=== PATIENT | female | born 1950 | race Caucasian/White ===

== ENCOUNTER 2017-08-04 01:09 | Day surgery (SDC) | payer MEDICARE, OTHER ==
[~2017-08-04 01:09] MED LIST: ABAT250V IV; ALBU90OI INH; AMLO5 PO; ASPI325EC PO; ASPI81CH PO; ATOR20; AZIT250 PO; AZIT500 PO; CLOP75 PO; ETAN25I SC; HYDACE10B PO; IBUP800 PO; LOSA25 PO; METO25ER; METTREX2.5 PO; Methotrexa25 MG/1 ML; OMEPRAZOLE MAGN20 MG; PRED20 PO; PRED5; PRODEXEL PO; PSEU120ER PO; Valium5 MG PO; [UNRECOGNIZED DRUG - OTHER] IM
[2018-02-16] MEDS ORDERED: ABAT250V IV ×2 (14:26)
== END 2017-08-04 12:00 | disposition home or self-care (01) ==
LOC: ATC 01:09
DX: M05.79 Rheumatoid arthritis with rheumatoid factor of multiple sites without organ or systems involvement (principal); I10 Essential (primary) hypertension; Z79.52 Long term (current) use of systemic steroids; F17.210 Nicotine dependence, cigarettes, uncomplicated; I25.10 Atherosclerotic heart disease of native coronary artery without angina pectoris; R16.0 Hepatomegaly, not elsewhere classified; Z79.02 Long term (current) use of antithrombotics/antiplatelets
CPT/HCPCS: 96365; J0129

== ENCOUNTER 2017-09-01 00:56 | Day surgery (SDC) | payer MEDICARE, OTHER ==
[2018-02-16] MEDS ORDERED: ABAT250V IV ×2 (14:26)
== END 2017-09-01 14:33 | disposition home or self-care (01) ==
LOC: ATC 00:56
DX: M05.79 Rheumatoid arthritis with rheumatoid factor of multiple sites without organ or systems involvement (principal); Z88.5 Allergy status to narcotic agent
CPT/HCPCS: 96365; J0129

== ENCOUNTER 2017-09-29 00:24 | Day surgery (SDC) | payer MEDICARE, OTHER ==
[2018-02-16] MEDS ORDERED: ABAT250V IV ×2 (14:26)
== END 2017-09-29 15:17 | disposition home or self-care (01) ==
LOC: ATC 00:24
DX: M05.79 Rheumatoid arthritis with rheumatoid factor of multiple sites without organ or systems involvement (principal); I25.10 Atherosclerotic heart disease of native coronary artery without angina pectoris; I10 Essential (primary) hypertension
CPT/HCPCS: 96365; J0129

== ENCOUNTER 2017-10-27 01:50 | Day surgery (SDC) | payer MEDICARE, OTHER ==
[2018-02-16] MEDS ORDERED: ABAT250V IV ×2 (14:26)
== END 2017-10-27 15:10 | disposition home or self-care (01) ==
LOC: ATC 01:50
DX: M05.79 Rheumatoid arthritis with rheumatoid factor of multiple sites without organ or systems involvement (principal)
CPT/HCPCS: 96365; 96413; J0129

== ENCOUNTER 2017-11-25 00:28 | Day surgery (SDC) | payer MEDICARE, OTHER | END 2017-11-25 15:00 | disposition home or self-care (01) | LOC: ATC 00:28 | DX: M05.79 Rheumatoid arthritis with rheumatoid factor of multiple sites without organ or systems involvement (principal); M79.7 Fibromyalgia; I10 Essential (primary) hypertension; M54.5 Low back pain | CPT/HCPCS: 96365; J0129 ==

== ENCOUNTER 2017-12-23 00:36 | Day surgery (SDC) | payer MEDICARE, OTHER | END 2017-12-23 15:20 | disposition home or self-care (01) | LOC: ATC 00:36 | DX: M05.79 Rheumatoid arthritis with rheumatoid factor of multiple sites without organ or systems involvement (principal) | CPT/HCPCS: 96365; J0129 ==

== ENCOUNTER 2018-01-19 00:26 | Day surgery (SDC) | payer MEDICARE, OTHER | END 2018-01-19 15:19 | disposition home or self-care (01) | LOC: ATC 00:26 | DX: M05.79 Rheumatoid arthritis with rheumatoid factor of multiple sites without organ or systems involvement (principal); M79.7 Fibromyalgia; I25.10 Atherosclerotic heart disease of native coronary artery without angina pectoris; I25.2 Old myocardial infarction | CPT/HCPCS: 96365; J0129 ==

== ENCOUNTER 2018-04-13 08:30 | Day surgery (SDC) | payer MEDICARE, OTHER | END 2018-04-13 15:33 | disposition home or self-care (01) | LOC: ATC 08:30 | DX: M05.79 Rheumatoid arthritis with rheumatoid factor of multiple sites without organ or systems involvement (principal); M79.7 Fibromyalgia | CPT/HCPCS: 96365; J0129 ==

== ENCOUNTER 2018-08-12 00:22 | Day surgery (SDC) | payer MEDICARE, OTHER | END 2018-08-12 15:05 | disposition home or self-care (01) | LOC: ATC 00:22 | DX: M05.79 Rheumatoid arthritis with rheumatoid factor of multiple sites without organ or systems involvement (principal); M79.7 Fibromyalgia; Z72.0 Tobacco use; Z79.899 Other long term (current) drug therapy; Z88.5 Allergy status to narcotic agent | CPT/HCPCS: 96365; J0129 ==

== ENCOUNTER 2018-09-19 14:20 | Day surgery (SDC) | payer MEDICARE, OTHER | END 2018-09-19 15:32 | disposition home or self-care (01) | LOC: ATC 14:20 | DX: M05.79 Rheumatoid arthritis with rheumatoid factor of multiple sites without organ or systems involvement (principal); Z88.5 Allergy status to narcotic agent | CPT/HCPCS: 96365; J0129 ==

== ENCOUNTER → 2018-10-20 | Outpatient (CLI) | payer MEDICARE, OTHER ==
[2018-10-20 12:25] LABS: BASOPHILS ABSOLUTE AUTO 0.01 K/mm3 (0.00-0.23); BASOPHILS PERCENT AUTO 0 % (0-2); EOSINOPHILS PERCENT AUTO 0 % (0-6); Hematocrit 46.3 % (33.0-51.0); Hemoglobin 15.7 g/dL (11.5-16.0); IMMATURE GRAN ABSOLUTE AUTO 0.02 K/mm3 (0.00-0.10); IMMATURE GRAN PERCENT AUTO 0 % (0-1); LYMPHOCYTES ABSOLUTE AUTO 2.16 K/mm3 (0.84-5.20); LYMPHOCYTES PERCENT AUTO 29 % (21-46); MONOCYTES ABSOLUTE AUTO 0.69 K/mm3 (0.16-1.47); MONOCYTES PERCENT AUTO 9 % (4-13); Mean Corpuscular HGB 31.7 pg (26.0-34.0); Mean Corpuscular HGB Conc 33.9 g/dL (31.5-36.5); Mean Corpuscular Volume 93 fL (80-100); Mean Platelet Volume 11.4 fL (9.1-12.4); NEUTROPHILS ABSOLUTE AUTO 4.62 K/mm3 (1.96-9.15); NEUTROPHILS PERCENT AUTO 62 % (41-73); Platelet Count 247 K/mm3 (150-400); RDW Coefficient Variation 13.8 % (11.7-14.2); RDW Standard Deviation 47.8 fL (35.1-46.3); Red Blood Cell Count 4.96 M/mm3 (3.80-5.20)
[2018-10-20 12:33] LABS: Albumin, Blood 3.7 g/dL (3.4-5.0); Albumin/Globulin Ratio 1.2 (0.8-1.8); Bilirubin, Total 0.9 mg/dL (0.1-1.0); Bun/Creatinine Ratio 29.4 (12.0-20.0); Calcium, Blood 8.7 mg/dL (8.5-10.1); Creatinine, Blood 1.02 mg/dL (0.40-1.00); Globulin, Blood 3.1 g/dL (2.2-4.0); Potassium, Blood 3.6 mmol/L (3.5-5.5); Total Protein, Blood 6.8 g/dL (6.4-8.2)
== END | disposition home or self-care (01) ==
LOC: LAB EV 12:18 → LAB SHORT 12:18
PROVIDERS: General Practice
DX: J44.9 Chronic obstructive pulmonary disease, unspecified (principal)
CPT/HCPCS: 80053; 85025

== ENCOUNTER 2018-11-25 00:19 | Day surgery (SDC) | payer MEDICARE, OTHER | END 2018-11-25 15:17 | disposition home or self-care (01) | LOC: ATC 00:19 | DX: M05.79 Rheumatoid arthritis with rheumatoid factor of multiple sites without organ or systems involvement (principal); I10 Essential (primary) hypertension; M79.7 Fibromyalgia; Z88.5 Allergy status to narcotic agent | CPT/HCPCS: 96365; J0129 ==

== ENCOUNTER 2019-02-10 00:52 | Day surgery (SDC) | payer MEDICARE, OTHER | END 2019-02-10 15:54 | disposition home or self-care (01) | LOC: ATC 00:52 | DX: M06.9 Rheumatoid arthritis, unspecified (principal); M79.7 Fibromyalgia; M47.896 Other spondylosis, lumbar region; I10 Essential (primary) hypertension; I25.10 Atherosclerotic heart disease of native coronary artery without angina pectoris; I25.2 Old myocardial infarction; Z85.828 Personal history of other malignant neoplasm of skin; Z95.5 Presence of coronary angioplasty implant and graft; Z79.899 Other long term (current) drug therapy; Z79.82 Long term (current) use of aspirin; Z79.52 Long term (current) use of systemic steroids; Z79.891 Long term (current) use of opiate analgesic; Z88.5 Allergy status to narcotic agent | CPT/HCPCS: 96365; J0129 ==

== ENCOUNTER 2019-03-13 00:09 | Day surgery (SDC) | payer MEDICARE, OTHER | END 2019-03-13 14:46 | disposition home or self-care (01) | LOC: ATC 00:09 | DX: M05.79 Rheumatoid arthritis with rheumatoid factor of multiple sites without organ or systems involvement (principal); I10 Essential (primary) hypertension | CPT/HCPCS: 96365; J0129 ==

== ENCOUNTER 2019-04-12 00:13 | Day surgery (SDC) | payer MEDICARE, OTHER | END 2019-04-12 15:17 | disposition home or self-care (01) | LOC: ATC 00:13 | DX: M05.79 Rheumatoid arthritis with rheumatoid factor of multiple sites without organ or systems involvement (principal); M79.7 Fibromyalgia; I10 Essential (primary) hypertension; Z88.5 Allergy status to narcotic agent | CPT/HCPCS: 96365; J0129 ==

== ENCOUNTER 2019-05-10 00:33 | Day surgery (SDC) | payer MEDICARE, OTHER | END 2019-05-10 15:00 | disposition home or self-care (01) | LOC: ATC 00:33 | DX: M05.79 Rheumatoid arthritis with rheumatoid factor of multiple sites without organ or systems involvement (principal); I25.10 Atherosclerotic heart disease of native coronary artery without angina pectoris; I10 Essential (primary) hypertension; I25.2 Old myocardial infarction; F17.210 Nicotine dependence, cigarettes, uncomplicated; Z79.899 Other long term (current) drug therapy; Z95.5 Presence of coronary angioplasty implant and graft; Z79.82 Long term (current) use of aspirin | CPT/HCPCS: 96365; J0129 ==

== ENCOUNTER 2019-05-30 14:24 | Emergency (ER) | payer MEDICARE, OTHER ==
[~2019-05-30] VITALS: Ht 154.9 cm; Wt 46.3 kg
[2019-05-30 15:24] LABS: BASOPHILS ABSOLUTE AUTO 0.05 K/mm3 (0.00-0.23); BASOPHILS PERCENT AUTO 1 % (0-2); EOSINOPHILS ABSOLUTE AUTO 0.02 K/mm3 (0.00-0.68); EOSINOPHILS PERCENT AUTO 0 % (0-6); Hemoglobin 14.7 g/dL (11.5-16.0); IMMATURE GRAN ABSOLUTE AUTO 0.03 K/mm3 (0.00-0.10); IMMATURE GRAN PERCENT AUTO 0 % (0-1); LYMPHOCYTES ABSOLUTE AUTO 2.73 K/mm3 (0.84-5.20); LYMPHOCYTES PERCENT AUTO 28 % (21-46); MONOCYTES ABSOLUTE AUTO 0.72 K/mm3 (0.16-1.47); MONOCYTES PERCENT AUTO 7 % (4-13); Mean Corpuscular HGB Conc 32.7 g/dL (31.5-36.5); Mean Corpuscular Volume 98 fL (80-100); Mean Platelet Volume 10.8 fL (9.1-12.4); NEUTROPHILS ABSOLUTE AUTO 6.33 K/mm3 (1.96-9.15); NEUTROPHILS PERCENT AUTO 64 % (41-73); Platelet Count 234 K/mm3 (150-400); RDW Coefficient Variation 13.3 % (11.7-14.2); Red Blood Cell Count 4.59 M/mm3 (3.80-5.20); White Blood Cell Count 9.88 K/mm3 (4.00-11.30)
[2019-05-30 15:43] LABS: Alanine Aminotransfer (ALT/SGP 16 U/L (12-78); Albumin, Blood 3.7 g/dL (3.4-5.0); Albumin/Globulin Ratio 1.3 (0.8-1.8); Alk Phos 92 U/L (50-136); Anion Gap 0 mmol/L (6-16); Aspartate Aminotrans (AST/SGOT 14 U/L (12-37); Bilirubin, Total 0.5 mg/dL (0.1-1.0); Blood Urea Nitrogen 11 mg/dL (8-24); Bun/Creatinine Ratio 16.3 (12.0-20.0); CO2, Blood 31 mmol/L (21-32); Calcium, Blood 8.9 mg/dL (8.5-10.1); Chloride, Blood 109 mmol/L (98-108); Creatinine, Blood 0.68 mg/dL (0.40-1.00); Globulin, Blood 2.9 g/dL (2.2-4.0); Glomerular Filtration Rate >60 (60-); Glucose, Blood 99 mg/dL (70-99); Potassium, Blood 3.7 mmol/L (3.5-5.5); Sodium, Blood 140 mmol/L (136-145); Total Protein, Blood 6.6 g/dL (6.4-8.2); Troponin I <0.015 ng/mL (0.000-0.040)
== END 2019-05-30 17:28 | disposition home or self-care (01) ==
LOC: ER 14:24
PROVIDERS: Physician Assistant
DX: R07.89 Other chest pain (principal); I10 Essential (primary) hypertension; J44.9 Chronic obstructive pulmonary disease, unspecified; Z79.899 Other long term (current) drug therapy; Z79.82 Long term (current) use of aspirin; Z79.52 Long term (current) use of systemic steroids
CPT/HCPCS: 36415; 71046; 80053; 84484; 85025; 93005; 93010; 99285-25

== ENCOUNTER 2019-07-07 01:58 | Day surgery (SDC) | payer MEDICARE, OTHER ==
[~2019-07-07 01:58] MED LIST changes: -ATOR20; +ATOR20 PO; -METO25ER; +METO25ER PO; -PRED5; +PRED5 PO
[2019-07-07] MEDS ORDERED: Nitroglycerin1 EAC3 TD (14:07)
[2019-07-21] MEDS ORDERED: Aspir 8181 MG PO (07:44)
== END 2019-07-07 15:34 | disposition home or self-care (01) ==
LOC: ATC 01:58
DX: M06.9 Rheumatoid arthritis, unspecified (principal); M79.7 Fibromyalgia; I25.10 Atherosclerotic heart disease of native coronary artery without angina pectoris; E78.5 Hyperlipidemia, unspecified; I10 Essential (primary) hypertension; I25.2 Old myocardial infarction; K21.9 Gastro-esophageal reflux disease without esophagitis; F17.200 Nicotine dependence, unspecified, uncomplicated; Z88.2 Allergy status to sulfonamides; Z88.5 Allergy status to narcotic agent; Z88.8 Allergy status to other drugs, medicaments and biological substances; Z79.82 Long term (current) use of aspirin; Z79.52 Long term (current) use of systemic steroids; Z79.899 Other long term (current) drug therapy; Z95.5 Presence of coronary angioplasty implant and graft
CPT/HCPCS: 96365; J0129

== ENCOUNTER 2019-07-11 05:12 | Observation (INO) | payer MEDICARE, OTHER ==
[~2019-07-11] VITALS: Ht 154.9 cm; Wt 47.6 kg
[~2019-07-11 05:12] MED LIST changes: +Nitroglycerin1 EAC3 TD
[2019-07-11 05:46] LABS: BASOPHILS ABSOLUTE AUTO 0.06 K/mm3 (0.00-0.23); BASOPHILS PERCENT AUTO 0 % (0-2); EOSINOPHILS ABSOLUTE AUTO 0.08 K/mm3 (0.00-0.68); EOSINOPHILS PERCENT AUTO 1 % (0-6); Hematocrit 44.3 % (33.0-51.0); Hemoglobin 14.8 g/dL (11.5-16.0); IMMATURE GRAN ABSOLUTE AUTO 0.06 K/mm3 (0.00-0.10); IMMATURE GRAN PERCENT AUTO 0 % (0-1); LYMPHOCYTES ABSOLUTE AUTO 2.25 K/mm3 (0.84-5.20); LYMPHOCYTES PERCENT AUTO 15 % (21-46); MONOCYTES ABSOLUTE AUTO 1.31 K/mm3 (0.16-1.47); MONOCYTES PERCENT AUTO 9 % (4-13); Mean Corpuscular HGB 31.6 pg (26.0-34.0); Mean Corpuscular HGB Conc 33.4 g/dL (31.5-36.5); Mean Corpuscular Volume 95 fL (80-100); Mean Platelet Volume 10.5 fL (9.1-12.4); NEUTROPHILS ABSOLUTE AUTO 11.31 K/mm3 (1.96-9.15); NEUTROPHILS PERCENT AUTO 75 % (41-73); Platelet Count 198 K/mm3 (150-400); RDW Coefficient Variation 13.2 % (11.7-14.2); RDW Standard Deviation 45.4 fL (35.1-46.3); Red Blood Cell Count 4.69 M/mm3 (3.80-5.20); White Blood Cell Count 15.07 K/mm3 (4.00-11.30)
[2019-07-11 06:07] LABS: Alanine Aminotransfer (ALT/SGP 21 U/L (12-78); Albumin, Blood 3.6 g/dL (3.4-5.0); Albumin/Globulin Ratio 1.2 (0.8-1.8); Alk Phos 99 U/L (50-136); Anion Gap 6 mmol/L (6-16); Aspartate Aminotrans (AST/SGOT 17 U/L (12-37); Bilirubin, Total 0.8 mg/dL (0.1-1.0); Blood Urea Nitrogen 11 mg/dL (8-24); Bun/Creatinine Ratio 16.2 (12.0-20.0); CO2, Blood 26 mmol/L (21-32); Calcium, Blood 8.9 mg/dL (8.5-10.1); Chloride, Blood 110 mmol/L (98-108); Creatinine, Blood 0.68 mg/dL (0.40-1.00); Glomerular Filtration Rate >60 (60-); Glucose, Blood 107 mg/dL (70-99); Potassium, Blood 3.6 mmol/L (3.5-5.5); Sodium, Blood 142 mmol/L (136-145); Total Protein, Blood 6.6 g/dL (6.4-8.2); Troponin I <0.015 ng/mL (0.000-0.040)
[2019-07-11 15:42] LABS: Adenovirus Not Detected (NOT DETECT); Bordetella pertussis Not Detected (NOT DETECT); Chlamydophila pneumoniae Not Detected (NOT DETECT); Coronavirus 229E Not Detected (NOT DETECT); Coronavirus HKU1 Not Detected (NOT DETECT); Coronavirus NL63 Not Detected (NOT DETECT); Coronavirus OC43 Not Detected (NOT DETECT); Human Metapneumovirus Not Detected (NOT DETECT); Human Rhinovirus/Enterovirus Detected (NOT DETECT); Influenza A Not Detected (NOT DETECT); Influenza A/2009-H1 Not Detected (NOT DETECT); Influenza A/H1 Not Detected (NOT DETECT); Influenza A/H3 Not Detected (NOT DETECT); Influenza B Not Detected (NOT DETECT); Mycoplasma pneumoniae Not Detected (NOT DETECT); Parainfluenza Virus 1 Not Detected (NOT DETECT); Parainfluenza Virus 2 Not Detected (NOT DETECT); Parainfluenza Virus 3 Not Detected (NOT DETECT); Parainfluenza Virus 4 Not Detected (NOT DETECT); Respiratory Syncytial Virus Not Detected (NOT DETECT)
--- NOTE | 2019-07-11 18:45 | NUR ---
PT. SITTING IN BED AFTER EATING DINNER. HAS AMBULATED TWICE IN THE [place] SINCE ARRIVAL TO FLOOR. PT. IS A SMOKER BUT INFORMED HER SHE COULD NOT TAKE THE IV POLE OUT TO SMOKE. PT. PLEASANT AND COOPERATIVE.
--- NOTE | 2019-07-12 04:08 | NUR ---
DIANETICIST SUMMARY PT A/O X4. PLEASANT AND COOPERATIVE. INDEPENDENT IN ROOM AND WENT FOR A WALK IN THE HALLWAY EARLIER IN THE SHIFT BEFORE BED. SLEPT WELL THROUGHOUT THE NIGHT. DENIED ANY PAIN, NAUSEA AND DIZZINIESS. LUNG SOUNDS COARSE THROUGHOUT. DENIED SOB AND NO EXERSION NOTED. RT PROVIDED PT WITH ACAPELLA AT BEDSIDE TO CLEAR UP AIRWAY. PT STILL CANNOT PRODUCE ANY SPUTUM. AWAITING ON SPUTUM CULTURE. VSS, WILL CONTINUE TO MONITOR.
[2019-07-12 05:40] LABS: BASOPHILS ABSOLUTE AUTO 0.01 K/mm3 (0.00-0.23); BASOPHILS PERCENT AUTO 0 % (0-2); EOSINOPHILS ABSOLUTE AUTO 0.01 K/mm3 (0.00-0.68); EOSINOPHILS PERCENT AUTO 0 % (0-6); Hematocrit 45.2 % (33.0-51.0); Hemoglobin 14.8 g/dL (11.5-16.0); IMMATURE GRAN ABSOLUTE AUTO 0.08 K/mm3 (0.00-0.10); IMMATURE GRAN PERCENT AUTO 1 % (0-1); LYMPHOCYTES ABSOLUTE AUTO 0.88 K/mm3 (0.84-5.20); LYMPHOCYTES PERCENT AUTO 6 % (21-46); MONOCYTES ABSOLUTE AUTO 0.41 K/mm3 (0.16-1.47); MONOCYTES PERCENT AUTO 3 % (4-13); Mean Corpuscular HGB 31.2 pg (26.0-34.0); Mean Corpuscular HGB Conc 32.7 g/dL (31.5-36.5); Mean Corpuscular Volume 95 fL (80-100); Mean Platelet Volume 11.5 fL (9.1-12.4); NEUTROPHILS PERCENT AUTO 91 % (41-73); Platelet Count 207 K/mm3 (150-400); RDW Coefficient Variation 13.1 % (11.7-14.2); RDW Standard Deviation 46.2 fL (35.1-46.3); Red Blood Cell Count 4.74 M/mm3 (3.80-5.20); White Blood Cell Count 14.79 K/mm3 (4.00-11.30)
[2019-07-12 05:55] LABS: Magnesium, Blood 2.3 mg/dL (1.6-2.4)
--- NOTE | 2019-07-12 05:55 | NUR ---
PT TO IMAGING. PT WILL BE WC'D TO ICU FLOOR TO VISIT WHO WAS ADMITTED. PT STATED SHE WILL BE BACK ON MEDICAL FLOOR FOR SHIFT CHANGE.
[2019-07-12 05:56] LABS: Alanine Aminotransfer (ALT/SGP 19 U/L (12-78); Albumin, Blood 3.9 g/dL (3.4-5.0); Albumin/Globulin Ratio 1.1 (0.8-1.8); Alk Phos 96 U/L (50-136); Anion Gap 7 mmol/L (6-16); Aspartate Aminotrans (AST/SGOT 12 U/L (12-37); Bilirubin, Total 0.7 mg/dL (0.1-1.0); Blood Urea Nitrogen 12 mg/dL (8-24); Bun/Creatinine Ratio 24.7 (12.0-20.0); CO2, Blood 26 mmol/L (21-32); Chloride, Blood 110 mmol/L (98-108); Creatinine, Blood 0.49 mg/dL (0.40-1.00); Globulin, Blood 3.6 g/dL (2.2-4.0); Glomerular Filtration Rate >60 (60-); Glucose, Blood 158 mg/dL (70-99); Phosphorus, Blood 3.5 mg/dL (2.5-4.9); Potassium, Blood 3.7 mmol/L (3.5-5.5); Sodium, Blood 143 mmol/L (136-145); Total Protein, Blood 7.5 g/dL (6.4-8.2)
--- NOTE | 2019-07-12 06:09 | NUR ---
NICOTINE PATCH APPLIED ON RIGHT ARM THIS SHIFT.
[2019-07-12] MEDS ORDERED: AZIT250 PO (11:35)
[2019-07-12] MEDS ORDERED: Prednisone10 MG PO (11:35)
[2019-07-12] MEDS ORDERED: Florastor250 MG PO (11:36)
[2019-07-12] MEDS ORDERED: Nicoderm Cq1 EAC1 TOP (11:36)
[2019-07-12] MEDS ORDERED: GUAI600T33 PO (11:36)
[2019-07-12] MEDS ORDERED: ALBU90OI INH (11:37)
--- NOTE | 2019-07-12 12:05 | NUR ---
PATIENT DISCHARGED AT 12:04. PATIENT'S IV WAS DISCHARGED. HER DAUGHTER WALKED HER OUT.
[2019-07-21] MEDS ORDERED: Aspir 8181 MG PO (07:44)
== END 2019-07-12 12:03 | disposition home or self-care (01) ==
LOC: ER 05:12 → MEDS 05:13 → ER 05:13 → MEDS 05:14
PROVIDERS: Emergency Medicine; ADMIT Hospitalist
DX: J20.9 Acute bronchitis, unspecified (principal); J44.0 Chronic obstructive pulmonary disease with (acute) lower respiratory infection; J44.1 Chronic obstructive pulmonary disease with (acute) exacerbation; I10 Essential (primary) hypertension; I25.10 Atherosclerotic heart disease of native coronary artery without angina pectoris; F17.210 Nicotine dependence, cigarettes, uncomplicated; E78.5 Hyperlipidemia, unspecified; M06.9 Rheumatoid arthritis, unspecified; M79.7 Fibromyalgia; G25.0 Essential tremor; Z88.2 Allergy status to sulfonamides; Z88.5 Allergy status to narcotic agent; Z88.8 Allergy status to other drugs, medicaments and biological substances; Z95.5 Presence of coronary angioplasty implant and graft; Z79.52 Long term (current) use of systemic steroids; Z79.82 Long term (current) use of aspirin; Z79.899 Other long term (current) drug therapy
CPT/HCPCS: 0099U; 36415; 71046; 80053; 83735; 83880; 84100; 84145; 84484; 85025; 93005; 93010; 94640; 94644; 94760; 96374; 99285-25; G0378; J0456; J0696; J1650; J2930; J7050; J7120; J7512

== ENCOUNTER 2019-07-18 12:13 | Emergency (ER) | payer MEDICARE, OTHER ==
[~2019-07-18] VITALS: Ht 154.9 cm; Wt 43.1 kg
[~2019-07-18 12:13] MED LIST changes: +Florastor250 MG PO; +GUAI600T33 PO; +Nicoderm Cq1 EAC1 TOP; +Prednisone10 MG PO
[2019-07-18 12:43] LABS: BASOPHILS ABSOLUTE AUTO 0.02 K/mm3 (0.00-0.23); BASOPHILS PERCENT AUTO 0 % (0-2); EOSINOPHILS ABSOLUTE AUTO 0.01 K/mm3 (0.00-0.68); EOSINOPHILS PERCENT AUTO 0 % (0-6); Hematocrit 48.5 % (33.0-51.0); Hemoglobin 15.8 g/dL (11.5-16.0); IMMATURE GRAN ABSOLUTE AUTO 0.06 K/mm3 (0.00-0.10); IMMATURE GRAN PERCENT AUTO 1 % (0-1); LYMPHOCYTES ABSOLUTE AUTO 1.71 K/mm3 (0.84-5.20); LYMPHOCYTES PERCENT AUTO 13 % (21-46); MONOCYTES PERCENT AUTO 2 % (4-13); Mean Corpuscular HGB 30.9 pg (26.0-34.0); Mean Corpuscular HGB Conc 32.6 g/dL (31.5-36.5); Mean Corpuscular Volume 95 fL (80-100); Mean Platelet Volume 10.7 fL (9.1-12.4); NEUTROPHILS ABSOLUTE AUTO 10.72 K/mm3 (1.96-9.15); NEUTROPHILS PERCENT AUTO 84 % (41-73); Platelet Count 305 K/mm3 (150-400); RDW Coefficient Variation 12.5 % (11.7-14.2); RDW Standard Deviation 43.8 fL (35.1-46.3); Red Blood Cell Count 5.11 M/mm3 (3.80-5.20); White Blood Cell Count 12.82 K/mm3 (4.00-11.30)
[2019-07-18 13:07] LABS: Alanine Aminotransfer (ALT/SGP 32 U/L (12-78); Albumin, Blood 3.7 g/dL (3.4-5.0); Albumin/Globulin Ratio 1.2 (0.8-1.8); Alk Phos 94 U/L (50-136); Anion Gap 5 mmol/L (6-16); Aspartate Aminotrans (AST/SGOT 12 U/L (12-37); Bilirubin, Total 0.8 mg/dL (0.1-1.0); Blood Urea Nitrogen 14 mg/dL (8-24); Bun/Creatinine Ratio 21.2 (12.0-20.0); CO2, Blood 30 mmol/L (21-32); Calcium, Blood 8.7 mg/dL (8.5-10.1); Chloride, Blood 106 mmol/L (98-108); Creatinine, Blood 0.66 mg/dL (0.40-1.00); Glomerular Filtration Rate >60 (60-); Glucose, Blood 166 mg/dL (70-99); Potassium, Blood 3.4 mmol/L (3.5-5.5); Sodium, Blood 141 mmol/L (136-145); Total Protein, Blood 6.7 g/dL (6.4-8.2)
[2019-07-18] MEDS ORDERED: POTA10T PO (13:26)
[2019-07-18] MEDS ORDERED: TORSE20 PO (14:24)
[2019-07-18] MEDS ORDERED: Prednisone20 MG PO (16:31)
[2019-07-18] MEDS ORDERED: ALBU90OI INH (16:31)
[2019-07-21] MEDS ORDERED: Aspir 8181 MG PO (07:44)
== END 2019-07-18 17:14 | disposition home or self-care (01) ==
LOC: ER 12:13
PROVIDERS: Physician Assistant
DX: J44.1 Chronic obstructive pulmonary disease with (acute) exacerbation (principal); I10 Essential (primary) hypertension; M06.9 Rheumatoid arthritis, unspecified; I25.10 Atherosclerotic heart disease of native coronary artery without angina pectoris; F17.200 Nicotine dependence, unspecified, uncomplicated; Z88.2 Allergy status to sulfonamides; Z88.5 Allergy status to narcotic agent; Z88.8 Allergy status to other drugs, medicaments and biological substances; Z79.52 Long term (current) use of systemic steroids; Z79.899 Other long term (current) drug therapy; Z79.82 Long term (current) use of aspirin; Z79.2 Long term (current) use of antibiotics
CPT/HCPCS: 36415; 71046; 80053; 83880; 84484; 85025; 94640; 94644; 99284-25; J7512

== ENCOUNTER 2019-07-21 10:45 | Day surgery (SDC) | payer MEDICARE, OTHER ==
[~2019-07-21] VITALS: Ht 154.9 cm; Wt 43.0 kg
[~2019-07-21 10:45] MED LIST changes: +Aspir 8181 MG PO; +POTA10T PO; +Prednisone20 MG PO; +TORSE20 PO
--- NOTE | 2019-07-21 16:57 | NUR ---
DISCHARGE PT REMAINED A&OX3 AND DENIED ANY PAIN DURING RECOVERY. R RADIAL SITE TR BAND REMOVED-CLOTH DOT BANDAGE AND WHITE BOARD IN [id number] HEMATOMA NOTED. PT ABLE TO DRESS SELF WITH LITTLE ASSISTANCE FROM SPOUSE. IV DC'D WITH TIP IN TACT. DISCHARGE PAPERWORK GONE OVER WITH PT AND SPOUSE. PT AND SPOUSE VERBALLY STATED THE UNDERSTANDING OF THE DISCHARGE EDUCATION AND DENIED ANY QUESTIONS AT THIS TIME. PT WHEELED OUT BY THIS NURSE.
== END 2019-07-21 23:52 | disposition home or self-care (01) ==
LOC: MHTC 10:45
PROC: B205YZZ Plain Radiography of Left Heart using Other Contrast (ICD-10-PCS; principal; 2019-07-21)
PROC: B201YZZ Plain Radiography of Multiple Coronary Arteries using Other Contrast (ICD-10-PCS; principal; 2019-07-21)
PROC: 4A023N7 Measurement of Cardiac Sampling and Pressure, Left Heart, Percutaneous Approach (ICD-10-PCS; principal; 2019-07-21)
DX: I25.118 Atherosclerotic heart disease of native coronary artery with other forms of angina pectoris (principal); I10 Essential (primary) hypertension; I34.0 Nonrheumatic mitral (valve) insufficiency; E78.5 Hyperlipidemia, unspecified; J44.9 Chronic obstructive pulmonary disease, unspecified; F17.210 Nicotine dependence, cigarettes, uncomplicated; Z88.2 Allergy status to sulfonamides; Z88.5 Allergy status to narcotic agent; Z79.82 Long term (current) use of aspirin; Z79.899 Other long term (current) drug therapy; Z91.018 Allergy to other foods; Z95.5 Presence of coronary angioplasty implant and graft
CPT/HCPCS: 85347; 92978; 93458; 93571; 93572; 99152; 99153; C1753; C1769; C1887; C1894; J0153; J1644; J2250; J3010; J7030; Q9967

== ENCOUNTER 2019-08-04 00:48 | Day surgery (SDC) | payer MEDICARE, OTHER | END 2019-08-04 15:01 | disposition home or self-care (01) | LOC: ATC 00:48 | DX: M05.79 Rheumatoid arthritis with rheumatoid factor of multiple sites without organ or systems involvement (principal); I10 Essential (primary) hypertension; Z79.899 Other long term (current) drug therapy | CPT/HCPCS: 96365; J0129 ==

== ENCOUNTER 2020-02-12 00:13 | Day surgery (SDC) | payer MEDICARE, OTHER ==
[~2020-02-12 00:13] MED LIST changes: +ACTEMRA200 MG/10 IV; +Bisoprolol Fumar5 MG PO; +NITR.4SL SL; +RANO500T PO
[2020-03-12] MEDS ORDERED: Aspirin EC81 MG PO (11:14)
[2020-03-12] MEDS ORDERED: LOSA25 (11:15)
[2020-03-12] MEDS ORDERED: Bisoprolol Fumar5 MG (11:15)
[2020-03-12] MEDS ORDERED: AMLO10 PO (11:15)
[2020-03-12] MEDS ORDERED: TORSE20 PO (11:16)
[2020-03-12] MEDS ORDERED: RANEXA1000 M1 PO (11:16)
[2020-03-12] MEDS ORDERED: POTA10T PO (11:16)
[2020-03-12] MEDS ORDERED: XATMEP2.5 MG/1 M (11:17)
[2020-03-12] MEDS ORDERED: [UNRECOGNIZED DRUG - OTHER] (11:17)
[2020-03-12] MEDS ORDERED: Norco 10-325 T1 EACH PO (11:18)
[2020-03-12] MEDS ORDERED: Ventolin/Prove6.7 GM INH (11:18)
[2020-03-12] MEDS ORDERED: SUCR1 PO (11:19)
[2020-03-12] MEDS ORDERED: MIRALAX17 G3 PO (11:19)
[2020-03-12] MEDS ORDERED: NITR.4SL SL (11:19)
== END 2020-02-12 15:33 | disposition home or self-care (01) ==
LOC: ATC 00:13
DX: M06.9 Rheumatoid arthritis, unspecified (principal); I10 Essential (primary) hypertension; M79.7 Fibromyalgia; Z88.5 Allergy status to narcotic agent; Z79.899 Other long term (current) drug therapy; Z79.82 Long term (current) use of aspirin
CPT/HCPCS: 96365; J3262

== ENCOUNTER 2020-04-10 00:21 | Day surgery (SDC) | payer MEDICARE, OTHER ==
[~2020-04-10 00:21] MED LIST changes: +AMLO10 PO; +Aspirin EC81 MG PO; +Bisoprolol Fumar5 MG; +LOSA25; +MIRALAX17 G3 PO; +Norco 10-325 T1 EACH PO; +RANEXA1000 M1 PO; +SUCR1 PO; +Ventolin/Prove6.7 GM INH; +XATMEP2.5 MG/1 M; +[UNRECOGNIZED DRUG - OTHER]
== END 2020-04-10 15:38 | disposition home or self-care (01) ==
LOC: ATC 00:21
DX: M05.79 Rheumatoid arthritis with rheumatoid factor of multiple sites without organ or systems involvement (principal); I25.10 Atherosclerotic heart disease of native coronary artery without angina pectoris; I10 Essential (primary) hypertension; I25.2 Old myocardial infarction; J44.9 Chronic obstructive pulmonary disease, unspecified; F17.210 Nicotine dependence, cigarettes, uncomplicated; Z88.5 Allergy status to narcotic agent; Z79.82 Long term (current) use of aspirin; Z79.899 Other long term (current) drug therapy
CPT/HCPCS: 96365; J3262

== ENCOUNTER 2020-05-10 01:48 | Day surgery (SDC) | payer MEDICARE, OTHER | END 2020-05-10 15:26 | disposition home or self-care (01) | LOC: ATC 01:48 | DX: M05.79 Rheumatoid arthritis with rheumatoid factor of multiple sites without organ or systems involvement (principal); F17.210 Nicotine dependence, cigarettes, uncomplicated; I25.10 Atherosclerotic heart disease of native coronary artery without angina pectoris; Z95.5 Presence of coronary angioplasty implant and graft; Z79.899 Other long term (current) drug therapy | CPT/HCPCS: 96365; J3262 ==

== ENCOUNTER 2020-07-08 00:13 | Day surgery (SDC) | payer MEDICARE, OTHER ==
[2020-07-08] MEDS ORDERED: PLAVIX75 MG PO (14:20)
== END 2020-07-08 15:31 | disposition home or self-care (01) ==
LOC: ATC 00:13
DX: M05.79 Rheumatoid arthritis with rheumatoid factor of multiple sites without organ or systems involvement (principal); M79.7 Fibromyalgia; M54.5 Low back pain; I10 Essential (primary) hypertension; I25.10 Atherosclerotic heart disease of native coronary artery without angina pectoris; I25.2 Old myocardial infarction; Z95.5 Presence of coronary angioplasty implant and graft; Z88.2 Allergy status to sulfonamides; Z88.5 Allergy status to narcotic agent; Z88.8 Allergy status to other drugs, medicaments and biological substances; Z79.82 Long term (current) use of aspirin; Z79.899 Other long term (current) drug therapy
CPT/HCPCS: 96365; J3262

== ENCOUNTER 2020-09-04 00:10 | Day surgery (SDC) | payer MEDICARE, OTHER ==
[~2020-09-04 00:10] MED LIST changes: +Deltasone 10 mg10 MG PO; +FLUTICASONE-SA1 EAC9 INH; +PLAVIX75 MG PO
== END 2020-09-04 14:56 | disposition home or self-care (01) ==
LOC: ATC 00:10
DX: M05.79 Rheumatoid arthritis with rheumatoid factor of multiple sites without organ or systems involvement (principal); M79.7 Fibromyalgia
CPT/HCPCS: 96365; J3262

== ENCOUNTER 2020-10-02 00:04 | Day surgery (SDC) | payer MEDICARE, OTHER ==
[2020-10-02] MEDS ORDERED: Nitroglycerin1 EAC1 TOP (13:35)
== END 2020-10-02 14:56 | disposition home or self-care (01) ==
LOC: ATC 00:04
DX: M05.79 Rheumatoid arthritis with rheumatoid factor of multiple sites without organ or systems involvement (principal); M79.7 Fibromyalgia; I25.10 Atherosclerotic heart disease of native coronary artery without angina pectoris; I25.2 Old myocardial infarction; J44.9 Chronic obstructive pulmonary disease, unspecified; F17.210 Nicotine dependence, cigarettes, uncomplicated; I10 Essential (primary) hypertension; C44.311 Basal cell carcinoma of skin of nose; Z95.5 Presence of coronary angioplasty implant and graft; Z79.82 Long term (current) use of aspirin; Z79.52 Long term (current) use of systemic steroids
CPT/HCPCS: 96365; J3262

== ENCOUNTER 2020-11-04 00:03 | Day surgery (SDC) | payer MEDICARE, OTHER ==
[~2020-11-04 00:03] MED LIST changes: +Nitroglycerin1 EAC1 TOP
[2020-11-06 00:07] LABS: HBSAG SCREEN Negative (Negative); HCV ANTIBODY <0.1 (0.0-0.9)
[2020-11-06 19:10] LABS: QUANTIFERON MITOGEN VALUE >10.00 IU/mL (.); QUANTIFERON NIL VALUE 0.04 IU/mL (.); QUANTIFERON TB1 AG VALUE 0.05 IU/mL (.); QUANTIFERON TB2 AG VALUE 0.05 IU/mL (.); QUANTIFERON-TB GOLD PLUS Negative (Negative)
== END 2020-11-04 15:15 | disposition home or self-care (01) ==
LOC: ATC 00:03
PROVIDERS: Internal Medicine Rheumatology
DX: M05.79 Rheumatoid arthritis with rheumatoid factor of multiple sites without organ or systems involvement (principal); I25.10 Atherosclerotic heart disease of native coronary artery without angina pectoris; I25.2 Old myocardial infarction; F17.210 Nicotine dependence, cigarettes, uncomplicated; Z79.82 Long term (current) use of aspirin; Z95.5 Presence of coronary angioplasty implant and graft
CPT/HCPCS: 86480; 86803; 87340; 96365; J3262

== ENCOUNTER 2020-12-31 04:56 | Day surgery (SDC) | payer MEDICARE, OTHER | END 2020-12-31 15:04 | disposition home or self-care (01) | LOC: ATC 04:56 | DX: M05.79 Rheumatoid arthritis with rheumatoid factor of multiple sites without organ or systems involvement (principal); I10 Essential (primary) hypertension; I25.10 Atherosclerotic heart disease of native coronary artery without angina pectoris; Z95.5 Presence of coronary angioplasty implant and graft; Z88.5 Allergy status to narcotic agent | CPT/HCPCS: 96365; J3262 ==

== ENCOUNTER 2021-01-28 04:18 | Day surgery (SDC) | payer MEDICARE, OTHER ==
--- NOTE | 2021-01-28 15:25 | NUR ---
TOLERATED INFUSION WELL. NO C/O.
== END 2021-01-28 15:18 | disposition home or self-care (01) ==
LOC: ATC 04:18
DX: M05.79 Rheumatoid arthritis with rheumatoid factor of multiple sites without organ or systems involvement (principal); I25.2 Old myocardial infarction; I10 Essential (primary) hypertension; F17.210 Nicotine dependence, cigarettes, uncomplicated
CPT/HCPCS: 96365; J3262

== ENCOUNTER 2021-02-28 01:34 | Day surgery (SDC) | payer MEDICARE, OTHER | END 2021-02-28 12:18 | disposition home or self-care (01) | LOC: ATC 01:34 | DX: M05.79 Rheumatoid arthritis with rheumatoid factor of multiple sites without organ or systems involvement (principal); Z88.5 Allergy status to narcotic agent; F17.210 Nicotine dependence, cigarettes, uncomplicated; I10 Essential (primary) hypertension; I25.10 Atherosclerotic heart disease of native coronary artery without angina pectoris | CPT/HCPCS: 96365; J3262 ==

== ENCOUNTER 2021-05-02 14:16 | Emergency (ER) | payer MEDICARE, OTHER ==
[~2021-05-02] VITALS: Ht 154.9 cm; Wt 45.4 kg
[2021-05-02 15:47] LABS: Alanine Aminotransfer (ALT/SGP 16 U/L (12-78); Albumin, Blood 3.4 g/dL (3.4-5.0); Alk Phos 96 U/L (50-136); Anion Gap 3 mmol/L (6-16); Aspartate Aminotrans (AST/SGOT 16 U/L (12-37); Bilirubin, Total 0.5 mg/dL (0.1-1.0); Blood Urea Nitrogen 13 mg/dL (8-24); Bun/Creatinine Ratio 15.8 (12.0-20.0); CO2, Blood 32 mmol/L (21-32); Calcium, Blood 8.6 mg/dL (8.5-10.1); Chloride, Blood 104 mmol/L (98-108); Creatinine, Blood 0.82 mg/dL (0.40-1.00); Globulin, Blood 3.5 g/dL (2.2-4.0); Glomerular Filtration Rate >60 (60-); Glucose, Blood 170 mg/dL (70-99); Potassium, Blood 3.5 mmol/L (3.5-5.5); Sodium, Blood 139 mmol/L (136-145); Total Protein, Blood 6.9 g/dL (6.4-8.2); Troponin I <0.015 ng/mL (0.000-0.040)
[2021-05-02 16:56] LABS: BASOPHILS ABSOLUTE AUTO 0.05 K/mm3 (0.00-0.23); BASOPHILS PERCENT AUTO 1 % (0-2); EOSINOPHILS ABSOLUTE AUTO 0.08 K/mm3 (0.00-0.68); EOSINOPHILS PERCENT AUTO 1 % (0-6); Hematocrit 44.8 % (33.0-51.0); Hemoglobin 14.9 g/dL (11.5-16.0); IMMATURE GRAN ABSOLUTE AUTO 0.05 K/mm3 (0.00-0.10); IMMATURE GRAN PERCENT AUTO 1 % (0-1); LYMPHOCYTES ABSOLUTE AUTO 2.38 K/mm3 (0.84-5.20); LYMPHOCYTES PERCENT AUTO 28 % (21-46); MONOCYTES ABSOLUTE AUTO 0.62 K/mm3 (0.16-1.47); MONOCYTES PERCENT AUTO 7 % (4-13); Mean Corpuscular HGB 32.7 pg (26.0-34.0); Mean Corpuscular HGB Conc 33.3 g/dL (31.5-36.5); Mean Corpuscular Volume 98 fL (80-100); Mean Platelet Volume 10.6 fL (9.1-12.4); NEUTROPHILS ABSOLUTE AUTO 5.25 K/mm3 (1.96-9.15); NEUTROPHILS PERCENT AUTO 62 % (41-73); Platelet Count 249 K/mm3 (150-400); RDW Coefficient Variation 13.7 % (11.7-14.2); RDW Standard Deviation 49.4 fL (35.1-46.3); Red Blood Cell Count 4.56 M/mm3 (3.80-5.20); White Blood Cell Count 8.43 K/mm3 (4.00-11.30)
== END 2021-05-02 16:56 | disposition home or self-care (01) ==
LOC: ER 14:16
PROVIDERS: Physician Assistant
DX: R07.2 Precordial pain (principal); Z53.21 Procedure and treatment not carried out due to patient leaving prior to being seen by health care provider; Z79.899 Other long term (current) drug therapy; Z79.02 Long term (current) use of antithrombotics/antiplatelets; Z79.82 Long term (current) use of aspirin
CPT/HCPCS: 36415; 71046; 80053; 83690; 83880; 84484; 85025; 93005; 93010; 99285-25

== ENCOUNTER → 2021-07-04 | Outpatient (CLI) | payer MEDICARE, OTHER ==
[2021-07-04 12:55] LABS: BASOPHILS ABSOLUTE AUTO 0.04 K/mm3 (0.00-0.23); BASOPHILS PERCENT AUTO 1 % (0-2); EOSINOPHILS ABSOLUTE AUTO 0.03 K/mm3 (0.00-0.68); EOSINOPHILS PERCENT AUTO 0 % (0-6); Hematocrit 45.7 % (33.0-51.0); Hemoglobin 15.3 g/dL (11.5-16.0); IMMATURE GRAN ABSOLUTE AUTO 0.04 K/mm3 (0.00-0.10); IMMATURE GRAN PERCENT AUTO 1 % (0-1); LYMPHOCYTES ABSOLUTE AUTO 1.59 K/mm3 (0.84-5.20); LYMPHOCYTES PERCENT AUTO 18 % (21-46); MONOCYTES ABSOLUTE AUTO 0.48 K/mm3 (0.16-1.47); MONOCYTES PERCENT AUTO 6 % (4-13); Mean Corpuscular HGB 32.1 pg (26.0-34.0); Mean Corpuscular HGB Conc 33.5 g/dL (31.5-36.5); Mean Corpuscular Volume 96 fL (80-100); Mean Platelet Volume 10.8 fL (9.1-12.4); NEUTROPHILS ABSOLUTE AUTO 6.49 K/mm3 (1.96-9.15); NEUTROPHILS PERCENT AUTO 75 % (41-73); Platelet Count 305 K/mm3 (150-400); RDW Coefficient Variation 12.6 % (11.7-14.2); RDW Standard Deviation 44.9 fL (35.1-46.3); Red Blood Cell Count 4.76 M/mm3 (3.80-5.20); White Blood Cell Count 8.67 K/mm3 (4.00-11.30)
[2021-07-04 13:04] LABS: Albumin, Blood 3.8 g/dL (3.4-5.0); Albumin/Globulin Ratio 1.2 (0.8-1.8); Bilirubin, Total 0.7 mg/dL (0.1-1.0); Bun/Creatinine Ratio 18.9 (12.0-20.0); Calcium, Blood 9.4 mg/dL (8.5-10.1); Creatinine, Blood 0.95 mg/dL (0.40-1.00); Globulin, Blood 3.2 g/dL (2.2-4.0); Potassium, Blood 3.9 mmol/L (3.5-5.5)
== END | disposition home or self-care (01) ==
LOC: LAB 12:46 → LAB SHORT 12:46
PROVIDERS: General Practice
DX: J44.9 Chronic obstructive pulmonary disease, unspecified (principal)
CPT/HCPCS: 80053; 85025; 85379

== ENCOUNTER 2021-07-21 10:11 | Day surgery (SDC) | payer MEDICARE, OTHER ==
[~2021-07-21] VITALS: Wt 47.5 kg
[2021-07-21] MEDS ORDERED: ATORVASTATIN CA20 MG PO (10:38)
== END 2021-07-21 12:10 | disposition home or self-care (01) ==
LOC: ATC 10:11
DX: M05.79 Rheumatoid arthritis with rheumatoid factor of multiple sites without organ or systems involvement (principal); M79.7 Fibromyalgia; I25.10 Atherosclerotic heart disease of native coronary artery without angina pectoris; Z95.5 Presence of coronary angioplasty implant and graft; J44.9 Chronic obstructive pulmonary disease, unspecified; F17.210 Nicotine dependence, cigarettes, uncomplicated; I10 Essential (primary) hypertension
CPT/HCPCS: J3262

== ENCOUNTER 2021-08-12 09:29 | Observation (INO) | payer MEDICARE, OTHER ==
[~2021-08-12] VITALS: Ht 154.9 cm; Wt 43.5 kg
[~2021-08-12 09:29] MED LIST changes: +ATORVASTATIN CA20 MG PO
[2021-08-12 10:19] LABS: BASOPHILS ABSOLUTE AUTO 0.02 K/mm3 (0.00-0.23); BASOPHILS PERCENT AUTO 0 % (0-2); EOSINOPHILS ABSOLUTE AUTO 0.01 K/mm3 (0.00-0.68); EOSINOPHILS PERCENT AUTO 0 % (0-6); Hematocrit 53.3 % (33.0-51.0); IMMATURE GRAN PERCENT AUTO 1 % (0-1); LYMPHOCYTES PERCENT AUTO 16 % (21-46); MONOCYTES ABSOLUTE AUTO 0.95 K/mm3 (0.16-1.47); MONOCYTES PERCENT AUTO 7 % (4-13); Mean Corpuscular HGB 31.5 pg (26.0-34.0); Mean Corpuscular HGB Conc 33.8 g/dL (31.5-36.5); Mean Corpuscular Volume 93 fL (80-100); Mean Platelet Volume 10.5 fL (9.1-12.4); NEUTROPHILS ABSOLUTE AUTO 10.77 K/mm3 (1.96-9.15); NEUTROPHILS PERCENT AUTO 76 % (41-73); Platelet Count 281 K/mm3 (150-400); RDW Coefficient Variation 13.2 % (11.7-14.2); RDW Standard Deviation 45.9 fL (35.1-46.3); Red Blood Cell Count 5.71 M/mm3 (3.80-5.20); White Blood Cell Count 14.15 K/mm3 (4.00-11.30)
[2021-08-12 10:49] LABS: Anion Gap 9 mmol/L (6-16); Blood Urea Nitrogen 25 mg/dL (8-24); Bun/Creatinine Ratio 22.3 (12.0-20.0); CO2, Blood 30 mmol/L (21-32); Calcium, Blood 9.5 mg/dL (8.5-10.1); Chloride, Blood 103 mmol/L (98-108); Creatinine, Blood 1.12 mg/dL (0.40-1.00); Glomerular Filtration Rate 48 (60-); Glucose, Blood 139 mg/dL (70-99); Magnesium, Blood 2.4 mg/dL (1.6-2.4); Potassium, Blood 3.4 mmol/L (3.5-5.5); Sodium, Blood 142 mmol/L (136-145); Troponin I <0.015 ng/mL (0.000-0.040)
[2021-08-12 10:57] LABS: Influenza A, PCR NEGATIVE (NEGATIVE); Influenza B, PCR NEGATIVE (NEGATIVE); Resp Syncytial Virus, PCR NEGATIVE (NEGATIVE); SARS-Cov-2 (COVID-19) PCR, MMC NEGATIVE (NEGATIVE)
[2021-08-12 11:26] LABS: Bicarbonate Venous 30.5 mmol/L (24.0-30.0); PCO2 Venous 51.2 mmHg (38-42); PO2 Venous 52.3 mmHg (38-42); pH Blood Venous 7.42 (7.34-7.37)
--- NOTE | 2021-08-12 17:45 | NUR ---
SHIFT SUMMARY PATIENT IS ALERT AND ORIENTED X4. PATIENT IS INDEPENDENT IN ROOM. PATIENT WAS ADMITTED FOR COPD EXASPERATION. PATIENT IS SATTING 95 PERCENT ON ROOM AIR. PATIENT WAS ADMITTED FROM ED AT APROX 1600. DAUGHTER VISITED AFTER ADMISSION. VITAL SIGNS REVIEWED. NO ACUTE EVENTS THIS SHIFT. WILL MONITOR UNTIL SHIFT CHANGE.
--- NOTE | 2021-08-13 04:27 | NUR ---
PATIENT WAS ALERT AND ORIENTED X4, STABLE VITAL SIGNS, NO ACUTE CHANGES, PATIENT DENIED HAVING ANY PAIN. PATIENT SLEPT MOST OF THE NIGHT. CALL LIGHT WITH IN REACH AND BED DOWN TO THE LOWEST POSITION.WILL CONTINUE TO MONITOR UNTIL HAND OFF.
[2021-08-13] MEDS ORDERED: IPRAT-ALBUT 0.5-3 ML INH (15:19)
[2021-08-13] MEDS ORDERED: LEVOFLOXACIN500 M5 PO (15:20)
[2021-08-13] MEDS ORDERED: Prednisone10 MG PO (15:24)
[2021-08-13] MEDS ORDERED: Q-Tussin100 MG/5 M PO (15:28)
--- NOTE | 2021-08-13 16:35 | NUR ---
RECEIVED PATIENT IN BED, AAOX4, ABLE TO MAKE NEEDS KNOWN. PT COMPLIANT TO MEDIACTION REGIMEN. NO COMPLAINTS VOICED, DENIED PAIN OR DISCOMFORT. PATIENT AMBULATES WITH STEADY GAIT, ASSISTED WITH ADL'S NEEDED. PT WAS DISCHARGED HOME TODAY. PT ON RA, NO DISTRESS NOTED, TOLERATED BREATHING TREATMENT.
== END 2021-08-13 15:41 | disposition home or self-care (01) ==
LOC: ER 09:29 → ERHOLD 09:30 → MEDS 09:30 → ERHOLD 12:15 → ER 12:15 → MEDS 12:15 → ERHOLD 16:12 → MEDS 16:12
PROVIDERS: Student in an Organized Health Care Education/Training Program; ADMIT Internal Medicine
DX: J44.1 Chronic obstructive pulmonary disease with (acute) exacerbation (principal); J44.0 Chronic obstructive pulmonary disease with (acute) lower respiratory infection; J20.9 Acute bronchitis, unspecified; I10 Essential (primary) hypertension; I25.10 Atherosclerotic heart disease of native coronary artery without angina pectoris; E78.5 Hyperlipidemia, unspecified; M79.7 Fibromyalgia; M06.9 Rheumatoid arthritis, unspecified; F17.210 Nicotine dependence, cigarettes, uncomplicated; Z66 Do not resuscitate; Z88.2 Allergy status to sulfonamides; Z88.5 Allergy status to narcotic agent; Z88.8 Allergy status to other drugs, medicaments and biological substances; Z20.822 Contact with and (suspected) exposure to COVID-19
CPT/HCPCS: 0241U; 71045; 80048; 82803; 83735; 84145; 84484; 85025; 93005; 93010; 94640; 94644; 94760; 96365; 96372; 96375; 96376; 99285-25; A9270; G0378; J1650; J2920; J3475; J7030; J7512

== ENCOUNTER 2021-09-03 03:01 | Day surgery (SDC) | payer MEDICARE, OTHER ==
[~2021-09-03] VITALS: Wt 45.4 kg
[~2021-09-03 03:01] MED LIST changes: +IPRAT-ALBUT 0.5-3 ML INH; +LEVOFLOXACIN500 M5 PO; +Q-Tussin100 MG/5 M PO
== END 2021-09-03 14:55 | disposition home or self-care (01) ==
LOC: ATC 03:01
DX: M05.79 Rheumatoid arthritis with rheumatoid factor of multiple sites without organ or systems involvement (principal); M79.7 Fibromyalgia; I25.10 Atherosclerotic heart disease of native coronary artery without angina pectoris; I25.2 Old myocardial infarction; I10 Essential (primary) hypertension; I73.9 Peripheral vascular disease, unspecified; Z95.5 Presence of coronary angioplasty implant and graft; Z79.82 Long term (current) use of aspirin; Z79.52 Long term (current) use of systemic steroids
CPT/HCPCS: J3262

== ENCOUNTER 2021-10-01 01:37 | Day surgery (SDC) | payer MEDICARE, OTHER | END 2021-10-01 15:22 | disposition home or self-care (01) | LOC: ATC 01:37 | DX: M06.9 Rheumatoid arthritis, unspecified (principal); M79.7 Fibromyalgia; I10 Essential (primary) hypertension; I25.10 Atherosclerotic heart disease of native coronary artery without angina pectoris; I25.2 Old myocardial infarction; I73.9 Peripheral vascular disease, unspecified; Z95.5 Presence of coronary angioplasty implant and graft | CPT/HCPCS: 96365; J3262 ==

== ENCOUNTER 2021-10-29 00:27 | Day surgery (SDC) | payer MEDICARE, OTHER ==
[~2021-10-29] VITALS: Wt 45.7 kg
[~2021-10-29 00:27] MED LIST changes: -LOSA25
[2021-10-29 15:18] LABS: BASOPHILS ABSOLUTE AUTO 0.07 K/mm3 (0.00-0.23); BASOPHILS PERCENT AUTO 1 % (0-2); EOSINOPHILS ABSOLUTE AUTO 0.06 K/mm3 (0.00-0.68); EOSINOPHILS PERCENT AUTO 1 % (0-6); Hemoglobin 15.2 g/dL (11.5-16.0); IMMATURE GRAN ABSOLUTE AUTO 0.03 K/mm3 (0.00-0.10); IMMATURE GRAN PERCENT AUTO 0 % (0-1); LYMPHOCYTES ABSOLUTE AUTO 1.96 K/mm3 (0.84-5.20); LYMPHOCYTES PERCENT AUTO 24 % (21-46); MONOCYTES ABSOLUTE AUTO 0.65 K/mm3 (0.16-1.47); MONOCYTES PERCENT AUTO 8 % (4-13); Mean Corpuscular Volume 100 fL (80-100); Mean Platelet Volume 11.4 fL (9.1-12.4); NEUTROPHILS ABSOLUTE AUTO 5.37 K/mm3 (1.96-9.15); NEUTROPHILS PERCENT AUTO 66 % (41-73); Platelet Count 225 K/mm3 (150-400); RDW Standard Deviation 48.3 fL (35.1-46.3); White Blood Cell Count 8.14 K/mm3 (4.00-11.30)
[2021-10-29 15:38] LABS: Alanine Aminotransfer (ALT/SGP 19 U/L (12-78); Albumin, Blood 3.8 g/dL (3.4-5.0); Albumin/Globulin Ratio 1.3 (0.8-1.8); Alk Phos 82 U/L (50-136); Anion Gap 7 mmol/L (6-16); Aspartate Aminotrans (AST/SGOT 18 U/L (12-37); Bilirubin, Total 0.8 mg/dL (0.1-1.0); Blood Urea Nitrogen 13 mg/dL (8-24); Bun/Creatinine Ratio 17.9 (12.0-20.0); C-REACTIVE PROTEIN, EXT RANGE <0.290 mg/dL (0.000-0.300); CO2, Blood 32 mmol/L (21-32); Calcium, Blood 9.1 mg/dL (8.5-10.1); Chloride, Blood 102 mmol/L (98-108); Cholesterol 201 mg/dL (50-200); Creatinine, Blood 0.73 mg/dL (0.40-1.00); Globulin, Blood 2.9 g/dL (2.2-4.0); Glomerular Filtration Rate >60 (60-); Glucose, Blood 139 mg/dL (70-99); Sodium, Blood 141 mmol/L (136-145); Total Protein, Blood 6.7 g/dL (6.4-8.2); Triglycerides 157 mg/dL (30-160)
== END 2021-10-29 15:18 | disposition home or self-care (01) ==
LOC: ATC 00:27
PROVIDERS: Internal Medicine Rheumatology
DX: M05.79 Rheumatoid arthritis with rheumatoid factor of multiple sites without organ or systems involvement (principal); M79.7 Fibromyalgia; I25.10 Atherosclerotic heart disease of native coronary artery without angina pectoris; J44.9 Chronic obstructive pulmonary disease, unspecified; I25.2 Old myocardial infarction; F17.210 Nicotine dependence, cigarettes, uncomplicated; Z95.5 Presence of coronary angioplasty implant and graft
CPT/HCPCS: 80053; 82465; 84478; 85025; 85651; 86140; J3262

== ENCOUNTER 2021-11-26 00:55 | Day surgery (SDC) | payer MEDICARE, OTHER ==
[2021-11-26 14:39] LABS: BASOPHILS ABSOLUTE AUTO 0.06 K/mm3 (0.00-0.23); BASOPHILS PERCENT AUTO 1 % (0-2); EOSINOPHILS ABSOLUTE AUTO 0.05 K/mm3 (0.00-0.68); EOSINOPHILS PERCENT AUTO 1 % (0-6); Hematocrit 46.6 % (33.0-51.0); Hemoglobin 15.6 g/dL (11.5-16.0); IMMATURE GRAN ABSOLUTE AUTO 0.02 K/mm3 (0.00-0.10); IMMATURE GRAN PERCENT AUTO 0 % (0-1); LYMPHOCYTES ABSOLUTE AUTO 2.13 K/mm3 (0.84-5.20); LYMPHOCYTES PERCENT AUTO 28 % (21-46); MONOCYTES ABSOLUTE AUTO 0.77 K/mm3 (0.16-1.47); MONOCYTES PERCENT AUTO 10 % (4-13); Mean Corpuscular HGB Conc 33.5 g/dL (31.5-36.5); Mean Corpuscular Volume 99 fL (80-100); Mean Platelet Volume 11.1 fL (9.1-12.4); NEUTROPHILS ABSOLUTE AUTO 4.69 K/mm3 (1.96-9.15); NEUTROPHILS PERCENT AUTO 61 % (41-73); Platelet Count 218 K/mm3 (150-400); RDW Coefficient Variation 12.1 % (11.7-14.2); RDW Standard Deviation 44.3 fL (35.1-46.3); Red Blood Cell Count 4.73 M/mm3 (3.80-5.20); White Blood Cell Count 7.72 K/mm3 (4.00-11.30)
[2021-11-26 14:44] LABS: Alanine Aminotransfer (ALT/SGP 19 U/L (12-78); Albumin, Blood 3.9 g/dL (3.4-5.0); Albumin/Globulin Ratio 1.4 (0.8-1.8); Alk Phos 84 U/L (50-136); Anion Gap 7 mmol/L (6-16); Aspartate Aminotrans (AST/SGOT 13 U/L (12-37); Bilirubin, Total 0.5 mg/dL (0.1-1.0); Blood Urea Nitrogen 12 mg/dL (8-24); Bun/Creatinine Ratio 16.9 (12.0-20.0); C-REACTIVE PROTEIN, EXT RANGE <0.290 mg/dL (0.000-0.300); CO2, Blood 31 mmol/L (21-32); Calcium, Blood 8.8 mg/dL (8.5-10.1); Chloride, Blood 104 mmol/L (98-108); Creatinine, Blood 0.71 mg/dL (0.40-1.00); Globulin, Blood 2.8 g/dL (2.2-4.0); Glomerular Filtration Rate >60 (60-); Glucose, Blood 122 mg/dL (70-99); Potassium, Blood 3.8 mmol/L (3.5-5.5); Sodium, Blood 142 mmol/L (136-145); Total Protein, Blood 6.7 g/dL (6.4-8.2)
== END 2021-11-26 15:29 | disposition home or self-care (01) ==
LOC: ATC 00:55
PROVIDERS: Internal Medicine Rheumatology
DX: M05.79 Rheumatoid arthritis with rheumatoid factor of multiple sites without organ or systems involvement (principal); I10 Essential (primary) hypertension; I25.10 Atherosclerotic heart disease of native coronary artery without angina pectoris; Z88.5 Allergy status to narcotic agent
CPT/HCPCS: 80053; 85025; 85651; 86140; J3262

== ENCOUNTER 2022-01-28 01:19 | Day surgery (SDC) | payer MEDICARE, OTHER ==
[~2022-01-28] VITALS: Wt 45.0 kg
== END 2022-01-28 15:29 | disposition home or self-care (01) ==
LOC: ATC 01:19
DX: M05.79 Rheumatoid arthritis with rheumatoid factor of multiple sites without organ or systems involvement (principal); M79.7 Fibromyalgia; Z95.5 Presence of coronary angioplasty implant and graft; I25.2 Old myocardial infarction; I10 Essential (primary) hypertension; I25.10 Atherosclerotic heart disease of native coronary artery without angina pectoris; I73.9 Peripheral vascular disease, unspecified
CPT/HCPCS: 96365; J3262

== ENCOUNTER 2022-03-02 00:43 | Day surgery (SDC) | payer MEDICARE, OTHER ==
[2022-03-02 14:33] LABS: BASOPHILS ABSOLUTE AUTO 0.05 K/mm3 (0.00-0.23); BASOPHILS PERCENT AUTO 1 % (0-2); EOSINOPHILS ABSOLUTE AUTO 0.04 K/mm3 (0.00-0.68); EOSINOPHILS PERCENT AUTO 1 % (0-6); Hemoglobin 14.5 g/dL (11.5-16.0); IMMATURE GRAN ABSOLUTE AUTO 0.02 K/mm3 (0.00-0.10); IMMATURE GRAN PERCENT AUTO 0 % (0-1); LYMPHOCYTES ABSOLUTE AUTO 2.23 K/mm3 (0.84-5.20); LYMPHOCYTES PERCENT AUTO 26 % (21-46); MONOCYTES ABSOLUTE AUTO 0.75 K/mm3 (0.16-1.47); MONOCYTES PERCENT AUTO 9 % (4-13); Mean Corpuscular HGB 32.4 pg (26.0-34.0); Mean Corpuscular HGB Conc 33.7 g/dL (31.5-36.5); Mean Corpuscular Volume 96 fL (80-100); Mean Platelet Volume 11.5 fL (9.1-12.4); NEUTROPHILS PERCENT AUTO 64 % (41-73); Platelet Count 200 K/mm3 (150-400); RDW Coefficient Variation 12.8 % (11.7-14.2); RDW Standard Deviation 45.6 fL (35.1-46.3); Red Blood Cell Count 4.48 M/mm3 (3.80-5.20); White Blood Cell Count 8.69 K/mm3 (4.00-11.30)
[2022-03-02 14:54] LABS: C-REACTIVE PROTEIN, EXT RANGE <0.290 mg/dL (0.000-0.300)
[2022-03-02 14:55] LABS: Alanine Aminotransfer (ALT/SGP 14 U/L (12-78); Albumin, Blood 3.8 g/dL (3.4-5.0); Albumin/Globulin Ratio 1.4 (0.8-1.8); Alk Phos 85 U/L (50-136); Anion Gap 4 mmol/L (6-16); Aspartate Aminotrans (AST/SGOT 9 U/L (12-37); Bilirubin, Total 0.6 mg/dL (0.1-1.0); Blood Urea Nitrogen 14 mg/dL (8-24); Bun/Creatinine Ratio 15.5 (12.0-20.0); CO2, Blood 27 mmol/L (21-32); Calcium, Blood 9.2 mg/dL (8.5-10.1); Chloride, Blood 109 mmol/L (98-108); Creatinine, Blood 0.91 mg/dL (0.40-1.00); Globulin, Blood 2.7 g/dL (2.2-4.0); Glomerular Filtration Rate 67 (60-); Glucose, Blood 142 mg/dL (70-99); Potassium, Blood 3.8 mmol/L (3.5-5.5); Sodium, Blood 140 mmol/L (136-145); Total Protein, Blood 6.5 g/dL (6.4-8.2)
== END 2022-03-02 15:29 | disposition home or self-care (01) ==
LOC: ATC 00:43
PROVIDERS: Internal Medicine Rheumatology
DX: M05.79 Rheumatoid arthritis with rheumatoid factor of multiple sites without organ or systems involvement (principal); I25.10 Atherosclerotic heart disease of native coronary artery without angina pectoris; J44.9 Chronic obstructive pulmonary disease, unspecified; Z95.5 Presence of coronary angioplasty implant and graft; Z95.1 Presence of aortocoronary bypass graft
CPT/HCPCS: 80053; 85025; 85651; 86140; J3262

== ENCOUNTER → 2022-03-03 | Outpatient (CLI) | payer MEDICARE, OTHER | END | disposition home or self-care (01) | LOC: LAB SHORT 11:23 | DX: M79.89 Other specified soft tissue disorders (principal) | CPT/HCPCS: 85379 ==

== ENCOUNTER 2022-03-30 01:31 | Day surgery (SDC) | payer MEDICARE, OTHER ==
[~2022-03-30] VITALS: Wt 44.8 kg
== END 2022-03-30 15:13 | disposition home or self-care (01) ==
LOC: ATC 01:31
DX: M05.79 Rheumatoid arthritis with rheumatoid factor of multiple sites without organ or systems involvement (principal); J44.9 Chronic obstructive pulmonary disease, unspecified; I25.10 Atherosclerotic heart disease of native coronary artery without angina pectoris; Z95.5 Presence of coronary angioplasty implant and graft; Z95.1 Presence of aortocoronary bypass graft
CPT/HCPCS: 96365; J3262

== ENCOUNTER 2022-05-25 02:49 | Day surgery (SDC) | payer MEDICARE, OTHER | END 2022-05-25 15:07 | disposition home or self-care (01) | LOC: ATC 02:49 | DX: M05.79 Rheumatoid arthritis with rheumatoid factor of multiple sites without organ or systems involvement (principal); I25.10 Atherosclerotic heart disease of native coronary artery without angina pectoris; J44.9 Chronic obstructive pulmonary disease, unspecified; F17.210 Nicotine dependence, cigarettes, uncomplicated | CPT/HCPCS: 96365; J3262 ==

== ENCOUNTER 2022-07-21 00:48 | Day surgery (SDC) | payer MEDICARE, OTHER | END 2022-07-21 15:40 | disposition home or self-care (01) | LOC: ATC 00:48 | DX: M05.79 Rheumatoid arthritis with rheumatoid factor of multiple sites without organ or systems involvement (principal); I25.10 Atherosclerotic heart disease of native coronary artery without angina pectoris; Z95.1 Presence of aortocoronary bypass graft | CPT/HCPCS: 96365; J3262 ==

== ENCOUNTER 2022-11-23 00:03 | Day surgery (SDC) | payer MEDICARE, OTHER ==
[~2022-11-23] VITALS: Wt 43.5 kg
[2022-11-23 13:35] VITALS: BP 175/95
== END 2022-11-23 15:25 | disposition home or self-care (01) ==
LOC: ATC 00:03
DX: M05.79 Rheumatoid arthritis with rheumatoid factor of multiple sites without organ or systems involvement (principal); I25.10 Atherosclerotic heart disease of native coronary artery without angina pectoris; J44.9 Chronic obstructive pulmonary disease, unspecified; Z95.1 Presence of aortocoronary bypass graft; Z95.5 Presence of coronary angioplasty implant and graft; Z79.82 Long term (current) use of aspirin; Z79.899 Other long term (current) drug therapy
CPT/HCPCS: 96365; J3262

== ENCOUNTER 2023-03-22 00:37 | Day surgery (SDC) | payer MEDICARE, OTHER ==
[2023-03-22 13:30] VITALS: BP 160/77
== END 2023-03-22 15:22 | disposition home or self-care (01) ==
LOC: ATC 00:37
DX: M05.79 Rheumatoid arthritis with rheumatoid factor of multiple sites without organ or systems involvement (principal); I25.10 Atherosclerotic heart disease of native coronary artery without angina pectoris; J44.9 Chronic obstructive pulmonary disease, unspecified
CPT/HCPCS: 96365; J3262

== ENCOUNTER 2023-05-19 05:22 | Day surgery (SDC) | payer MEDICARE, OTHER ==
[2023-05-19 13:42] VITALS: BP 158/70
== END 2023-05-19 15:08 | disposition home or self-care (01) ==
LOC: ATC 05:22
DX: M05.79 Rheumatoid arthritis with rheumatoid factor of multiple sites without organ or systems involvement (principal); I25.10 Atherosclerotic heart disease of native coronary artery without angina pectoris; J44.9 Chronic obstructive pulmonary disease, unspecified; Z95.1 Presence of aortocoronary bypass graft
CPT/HCPCS: 96365; J3262

== ENCOUNTER 2023-06-18 02:29 | Day surgery (SDC) | payer MEDICARE, OTHER ==
[2023-06-18 13:45] VITALS: BP 159/73
== END 2023-06-18 15:04 | disposition home or self-care (01) ==
LOC: ATC 02:29
DX: M05.79 Rheumatoid arthritis with rheumatoid factor of multiple sites without organ or systems involvement (principal); I25.10 Atherosclerotic heart disease of native coronary artery without angina pectoris; Z95.1 Presence of aortocoronary bypass graft
CPT/HCPCS: 96365; J3262

== ENCOUNTER 2023-07-20 00:40 | Day surgery (SDC) | payer MEDICARE, OTHER ==
[2023-07-20 14:12] VITALS: BP 174/92
[2023-07-20] MEDS ORDERED: ACTEMRA (14:44)
[2023-07-20 14:50] LABS: BASOPHILS ABSOLUTE AUTO 0.04 K/mm3 (0.00-0.23); BASOPHILS PERCENT AUTO 1 % (0-2); EOSINOPHILS ABSOLUTE AUTO 0.04 K/mm3 (0.00-0.68); EOSINOPHILS PERCENT AUTO 1 % (0-6); Hematocrit 43.9 % (33.0-51.0); Hemoglobin 14.8 g/dL (11.5-16.0); IMMATURE GRAN ABSOLUTE AUTO 0.02 K/mm3 (0.00-0.10); IMMATURE GRAN PERCENT AUTO 0 % (0-1); LYMPHOCYTES ABSOLUTE AUTO 2.22 K/mm3 (0.84-5.20); LYMPHOCYTES PERCENT AUTO 26 % (21-46); MONOCYTES ABSOLUTE AUTO 0.74 K/mm3 (0.16-1.47); MONOCYTES PERCENT AUTO 9 % (4-13); Mean Corpuscular HGB 31.8 pg (26.0-34.0); Mean Corpuscular HGB Conc 33.7 g/dL (31.5-36.5); Mean Corpuscular Volume 94 fL (80-100); Mean Platelet Volume 10.9 fL (9.1-12.4); NEUTROPHILS ABSOLUTE AUTO 5.52 K/mm3 (1.96-9.15); NEUTROPHILS PERCENT AUTO 64 % (41-73); Platelet Count 173 K/mm3 (150-400); RDW Coefficient Variation 13.2 % (11.7-14.2); RDW Standard Deviation 45.2 fL (35.1-46.3); Red Blood Cell Count 4.66 M/mm3 (3.80-5.20); White Blood Cell Count 8.58 K/mm3 (4.00-11.30)
[2023-07-20 15:13] LABS: Albumin, Blood 3.9 g/dL (3.4-5.0); Albumin/Globulin Ratio 1.4 (0.8-1.8); Bilirubin, Total 0.7 mg/dL (0.1-1.0); Bun/Creatinine Ratio 10.2 (12.0-20.0); Creatinine, Blood 0.79 mg/dL (0.40-1.00); Globulin, Blood 2.8 g/dL (2.2-4.0); Potassium, Blood 3.2 mmol/L (3.5-5.5); Total Protein, Blood 6.7 g/dL (6.4-8.2)
== END 2023-07-20 16:00 | disposition home or self-care (01) ==
LOC: ATC 00:40
PROVIDERS: Internal Medicine Rheumatology
DX: M05.79 Rheumatoid arthritis with rheumatoid factor of multiple sites without organ or systems involvement (principal); I25.10 Atherosclerotic heart disease of native coronary artery without angina pectoris; E78.5 Hyperlipidemia, unspecified; Z95.1 Presence of aortocoronary bypass graft; Z79.899 Other long term (current) drug therapy
CPT/HCPCS: 80053; 85025; 96365; J3262

== ENCOUNTER 2023-08-19 00:05 | Day surgery (SDC) | payer MEDICARE, OTHER ==
[~2023-08-19 00:05] MED LIST changes: +ACTEMRA
[2023-08-19 14:08] VITALS: BP 131/84
[2023-08-19 14:43] LABS: BASOPHILS ABSOLUTE AUTO 0.06 K/mm3 (0.00-0.23); BASOPHILS PERCENT AUTO 1 % (0-2); EOSINOPHILS ABSOLUTE AUTO 0.06 K/mm3 (0.00-0.68); EOSINOPHILS PERCENT AUTO 1 % (0-6); Hematocrit 45.3 % (33.0-51.0); Hemoglobin 15.7 g/dL (11.5-16.0); IMMATURE GRAN ABSOLUTE AUTO 0.03 K/mm3 (0.00-0.10); IMMATURE GRAN PERCENT AUTO 0 % (0-1); LYMPHOCYTES ABSOLUTE AUTO 2.52 K/mm3 (0.84-5.20); LYMPHOCYTES PERCENT AUTO 29 % (21-46); MONOCYTES ABSOLUTE AUTO 0.69 K/mm3 (0.16-1.47); MONOCYTES PERCENT AUTO 8 % (4-13); Mean Corpuscular HGB 32.2 pg (26.0-34.0); Mean Corpuscular HGB Conc 34.7 g/dL (31.5-36.5); Mean Corpuscular Volume 93 fL (80-100); Mean Platelet Volume 10.5 fL (9.1-12.4); NEUTROPHILS ABSOLUTE AUTO 5.39 K/mm3 (1.96-9.15); NEUTROPHILS PERCENT AUTO 62 % (41-73); Platelet Count 185 K/mm3 (150-400); RDW Coefficient Variation 13.2 % (11.7-14.2); RDW Standard Deviation 45.4 fL (35.1-46.3); Red Blood Cell Count 4.87 M/mm3 (3.80-5.20); White Blood Cell Count 8.75 K/mm3 (4.00-11.30)
[2023-08-19 14:50] LABS: Albumin/Globulin Ratio 1.4 (0.8-1.8); Bilirubin, Total 0.9 mg/dL (0.1-1.0); Bun/Creatinine Ratio 14.1 (12.0-20.0); Creatinine, Blood 0.78 mg/dL (0.40-1.00); Globulin, Blood 2.9 g/dL (2.2-4.0); Potassium, Blood 3.8 mmol/L (3.5-5.5); Total Protein, Blood 6.9 g/dL (6.4-8.2)
== END 2023-08-19 15:30 | disposition home or self-care (01) ==
LOC: ATC 00:05
PROVIDERS: Internal Medicine Rheumatology
DX: M05.79 Rheumatoid arthritis with rheumatoid factor of multiple sites without organ or systems involvement (principal); F17.210 Nicotine dependence, cigarettes, uncomplicated
CPT/HCPCS: 80053; 85025; 96365; J3262

== ENCOUNTER 2023-09-17 01:02 | Day surgery (SDC) | payer MEDICARE, OTHER ==
[2023-09-17] MEDS ORDERED: Tocilizumab 200 MG in NS 90 ML IV SCH (06:00)
[2023-09-17 14:01] VITALS: BP 154/90
== END 2023-09-17 15:25 | disposition home or self-care (01) ==
LOC: ATC 01:02
DX: M05.79 Rheumatoid arthritis with rheumatoid factor of multiple sites without organ or systems involvement (principal); I25.10 Atherosclerotic heart disease of native coronary artery without angina pectoris; Z95.1 Presence of aortocoronary bypass graft
CPT/HCPCS: 96365; J3262

== ENCOUNTER 2023-11-25 04:23 | Day surgery (SDC) | payer MEDICARE, OTHER ==
[2023-11-25] MEDS ORDERED: Tocilizumab 200 MG in NS 90 ML IV SCH (06:00)
[2023-11-25 10:15] VITALS: BP 130/87
[2023-11-25 14:01] VITALS: BP 160/95
== END 2023-11-25 15:20 | disposition home or self-care (01) ==
LOC: ATC 04:23
DX: M05.79 Rheumatoid arthritis with rheumatoid factor of multiple sites without organ or systems involvement (principal); Z79.899 Other long term (current) drug therapy
CPT/HCPCS: 96365; J3262

== ENCOUNTER 2024-01-26 02:48 | Day surgery (SDC) | payer MEDICARE, OTHER ==
[~2024-01-26 02:48] MED LIST changes: +Tocilizumab 200 MG in NS 90 ML IV SCH
[2024-01-26 14:00] VITALS: BP 168/93
== END 2024-01-26 15:55 | disposition home or self-care (01) ==
LOC: ATC 02:48
DX: M05.79 Rheumatoid arthritis with rheumatoid factor of multiple sites without organ or systems involvement (principal); I25.10 Atherosclerotic heart disease of native coronary artery without angina pectoris; J44.9 Chronic obstructive pulmonary disease, unspecified
CPT/HCPCS: 96365; J3262

== ENCOUNTER 2024-02-25 01:49 | Day surgery (SDC) | payer MEDICARE, OTHER ==
[~2024-02-25] VITALS: Wt 41.2 kg
[~2024-02-25 01:49] MED LIST changes: -Tocilizumab 200 MG in NS 90 ML IV SCH
[2024-02-25] MEDS ORDERED: Tocilizumab 200 MG in NS 90 ML IV SCH (06:00)
[2024-02-25 13:53] VITALS: BP 172/106
== END 2024-02-25 16:00 | disposition home or self-care (01) ==
LOC: ATC 01:49
DX: M05.79 Rheumatoid arthritis with rheumatoid factor of multiple sites without organ or systems involvement (principal); I25.10 Atherosclerotic heart disease of native coronary artery without angina pectoris; Z95.1 Presence of aortocoronary bypass graft; I73.9 Peripheral vascular disease, unspecified; F17.210 Nicotine dependence, cigarettes, uncomplicated; Z79.899 Other long term (current) drug therapy
CPT/HCPCS: 96365; J3262

== ENCOUNTER 2024-03-23 02:38 | Day surgery (SDC) | payer MEDICARE, OTHER ==
[~2024-03-23] VITALS: Wt 42.1 kg
[~2024-03-23 02:38] MED LIST changes: -Bisoprolol Fumar5 MG; +NITR.6SL SL; +TRAZ50 PO; -Ventolin/Prove6.7 GM INH
[2024-03-23] MEDS ORDERED: Tocilizumab 200 MG in NS 90 ML IV SCH (06:00)
[2024-03-23 13:49] VITALS: BP 164/97
== END 2024-03-23 15:30 | disposition home or self-care (01) ==
LOC: ATC 02:38
DX: M05.79 Rheumatoid arthritis with rheumatoid factor of multiple sites without organ or systems involvement (principal); I25.10 Atherosclerotic heart disease of native coronary artery without angina pectoris; J44.9 Chronic obstructive pulmonary disease, unspecified; Z95.5 Presence of coronary angioplasty implant and graft; F17.210 Nicotine dependence, cigarettes, uncomplicated; Z79.899 Other long term (current) drug therapy
CPT/HCPCS: 96365; J3262

== ENCOUNTER 2024-04-20 01:50 | Day surgery (SDC) | payer MEDICARE, OTHER ==
[~2024-04-20] VITALS: Wt 40.6 kg
[2024-04-20] MEDS ORDERED: Tocilizumab 200 MG in NS 90 ML IV SCH (07:00)
[2024-04-20 14:22] VITALS: BP 180/96
== END 2024-04-20 15:52 | disposition home or self-care (01) ==
LOC: ATC 01:50
DX: M05.79 Rheumatoid arthritis with rheumatoid factor of multiple sites without organ or systems involvement (principal); J44.9 Chronic obstructive pulmonary disease, unspecified; I25.10 Atherosclerotic heart disease of native coronary artery without angina pectoris; Z95.5 Presence of coronary angioplasty implant and graft; Z79.82 Long term (current) use of aspirin; Z79.899 Other long term (current) drug therapy
CPT/HCPCS: 96365; J3262

== ENCOUNTER 2024-05-18 02:20 | Day surgery (SDC) | payer MEDICARE, OTHER ==
[2024-05-18] MEDS ORDERED: Tocilizumab 200 MG in NS 90 ML IV SCH (06:00)
[2024-05-18 14:02] VITALS: BP 139/76
== END 2024-05-18 15:26 | disposition home or self-care (01) ==
LOC: ATC 02:20
DX: M05.79 Rheumatoid arthritis with rheumatoid factor of multiple sites without organ or systems involvement (principal); I25.10 Atherosclerotic heart disease of native coronary artery without angina pectoris; J44.9 Chronic obstructive pulmonary disease, unspecified; Z95.1 Presence of aortocoronary bypass graft
CPT/HCPCS: 96365; J3262

== ENCOUNTER 2024-10-03 00:25 | Day surgery (SDC) | payer MEDICARE, OTHER ==
[2024-10-03] MEDS ORDERED: TOCILIZUMAB IV SCH (06:00)
[2024-10-03] MEDS ORDERED: NS IV SCH (06:00)
[2024-10-03 14:17] VITALS: BP 157/85
[2024-10-03] MEDS ORDERED: NYSTATIN100000 U13 MT (14:20)
[2024-10-03] MEDS ORDERED: MEGE40T PO (14:20)
== END 2024-10-03 15:40 | disposition home or self-care (01) ==
LOC: ATC 00:25
DX: M05.79 Rheumatoid arthritis with rheumatoid factor of multiple sites without organ or systems involvement (principal); I25.10 Atherosclerotic heart disease of native coronary artery without angina pectoris; J44.9 Chronic obstructive pulmonary disease, unspecified; Z95.1 Presence of aortocoronary bypass graft; F17.210 Nicotine dependence, cigarettes, uncomplicated; Z79.899 Other long term (current) drug therapy
CPT/HCPCS: 96365; J3262

== ENCOUNTER 2024-11-09 04:06 | Day surgery (SDC) | payer MEDICARE, OTHER ==
[~2024-11-09] VITALS: Wt 40.3 kg
[~2024-11-09 04:06] MED LIST changes: +MEGE40T PO; +NYSTATIN100000 U13 MT
[2024-11-09] MEDS ORDERED: TOCILIZUMAB IV SCH (06:00)
[2024-11-09] MEDS ORDERED: NS IV SCH (06:00)
[2024-11-09 14:00] VITALS: BP 134/73
== END 2024-11-09 16:39 | disposition home or self-care (01) ==
LOC: ATC 04:06
DX: M05.79 Rheumatoid arthritis with rheumatoid factor of multiple sites without organ or systems involvement (principal); I25.10 Atherosclerotic heart disease of native coronary artery without angina pectoris; J44.9 Chronic obstructive pulmonary disease, unspecified; Z79.899 Other long term (current) drug therapy
CPT/HCPCS: 96365; J3262

== ENCOUNTER 2024-12-08 02:36 | Day surgery (SDC) | payer MEDICARE, OTHER ==
[~2024-12-08] VITALS: Wt 39.8 kg
[2024-12-08] MEDS ORDERED: TOCILIZUMAB IV SCH (06:00)
[2024-12-08] MEDS ORDERED: NS IV SCH (06:00)
[2024-12-08 10:04] VITALS: BP 153/93
== END 2024-12-08 11:40 | disposition home or self-care (01) ==
LOC: ATC 02:36
DX: M05.79 Rheumatoid arthritis with rheumatoid factor of multiple sites without organ or systems involvement (principal); I25.10 Atherosclerotic heart disease of native coronary artery without angina pectoris; J44.9 Chronic obstructive pulmonary disease, unspecified; Z95.5 Presence of coronary angioplasty implant and graft; Z79.899 Other long term (current) drug therapy; Z79.82 Long term (current) use of aspirin; Z91.018 Allergy to other foods
CPT/HCPCS: 96365; J3262

== ENCOUNTER 2025-01-04 02:34 | Day surgery (SDC) | payer MEDICARE, OTHER ==
[~2025-01-04] VITALS: Wt 40.5 kg
[2025-01-04] MEDS ORDERED: TOCILIZUMAB IV SCH (06:00)
[2025-01-04] MEDS ORDERED: NS IV SCH (06:00)
[2025-01-04 11:22] VITALS: BP 159/82
== END 2025-01-04 13:10 | disposition home or self-care (01) ==
LOC: ATC 02:34
DX: M05.79 Rheumatoid arthritis with rheumatoid factor of multiple sites without organ or systems involvement (principal); I25.10 Atherosclerotic heart disease of native coronary artery without angina pectoris; Z95.5 Presence of coronary angioplasty implant and graft; F17.210 Nicotine dependence, cigarettes, uncomplicated; Z79.899 Other long term (current) drug therapy
CPT/HCPCS: 96365; J3262

== ENCOUNTER 2025-02-01 03:44 | Day surgery (SDC) | payer MEDICARE, OTHER ==
[2025-02-01] MEDS ORDERED: Tocilizumab 200 MG in NS 90 ML IV SCH (06:00)
[2025-02-01 10:57] VITALS: BP 166/99
== END 2025-02-01 12:28 | disposition home or self-care (01) ==
LOC: ATC 03:44
DX: M05.79 Rheumatoid arthritis with rheumatoid factor of multiple sites without organ or systems involvement (principal); I25.10 Atherosclerotic heart disease of native coronary artery without angina pectoris; I73.9 Peripheral vascular disease, unspecified; J44.9 Chronic obstructive pulmonary disease, unspecified; F17.200 Nicotine dependence, unspecified, uncomplicated; Z95.1 Presence of aortocoronary bypass graft; Z95.5 Presence of coronary angioplasty implant and graft; Z79.899 Other long term (current) drug therapy; Z91.018 Allergy to other foods
CPT/HCPCS: 96365; J3262

== ENCOUNTER 2025-03-01 04:42 | Day surgery (SDC) | payer MEDICARE, OTHER ==
[~2025-03-01] VITALS: Wt 40.9 kg
[2025-03-01] MEDS ORDERED: Tocilizumab 200 MG in NS 90 ML IV SCH (06:00)
[2025-03-01 10:09] VITALS: BP 127/76
== END 2025-03-01 11:35 | disposition home or self-care (01) ==
LOC: ATC 04:42
DX: M05.79 Rheumatoid arthritis with rheumatoid factor of multiple sites without organ or systems involvement (principal); I25.10 Atherosclerotic heart disease of native coronary artery without angina pectoris; J44.9 Chronic obstructive pulmonary disease, unspecified; I73.9 Peripheral vascular disease, unspecified; Z79.82 Long term (current) use of aspirin; Z79.899 Other long term (current) drug therapy; Z91.018 Allergy to other foods; Z95.1 Presence of aortocoronary bypass graft; Z95.5 Presence of coronary angioplasty implant and graft; Z95.820 Peripheral vascular angioplasty status with implants and grafts
CPT/HCPCS: 96365; J3262

== ENCOUNTER 2025-03-30 02:40 | Day surgery (SDC) | payer MEDICARE, OTHER ==
[~2025-03-30] VITALS: Wt 41.5 kg
[~2025-03-30 02:40] MED LIST changes: +NS IV SCH; +TOCILIZUMAB IV SCH
[2025-03-30 10:08] VITALS: BP 169/92
[2025-03-30] MEDS ORDERED: TOCILIZUMAB IV SCH (10:45)
[2025-03-30] MEDS ORDERED: NS IV SCH (10:45)
[2025-04-03] MEDS ORDERED: Isosorbide Mono30 MG PO (11:29)
[2025-04-03] MEDS ORDERED: MEGESTROL400 MG/13 PO (11:30)
[2025-04-03] MEDS ORDERED: METO25ER PO (11:31)
== END 2025-03-30 11:48 | disposition home or self-care (01) ==
LOC: ATC 02:40
DX: M05.79 Rheumatoid arthritis with rheumatoid factor of multiple sites without organ or systems involvement (principal); I25.10 Atherosclerotic heart disease of native coronary artery without angina pectoris; I73.9 Peripheral vascular disease, unspecified; J44.9 Chronic obstructive pulmonary disease, unspecified; F17.210 Nicotine dependence, cigarettes, uncomplicated; Z95.1 Presence of aortocoronary bypass graft; Z95.5 Presence of coronary angioplasty implant and graft; Z91.018 Allergy to other foods
CPT/HCPCS: 96365; J3262

== ENCOUNTER 2025-04-11 11:42 | Day surgery (SDC) | payer MEDICARE, OTHER ==
[~2025-04-11] VITALS: Ht 152.4 cm; Wt 41.9 kg
[~2025-04-11 11:42] MED LIST changes: +Balanced Salt Epinephrine Irrigation Solution 500 mL IR SCH; +Isosorbide Mono30 MG PO; +MEGESTROL400 MG/13 PO; +Moxifloxacin HCL 0.5 MG/0.1 ML 0.4MLSYR RIGHTEYE SCH; -NS IV SCH; +Ondansetron 4 MG SoluTab MM PRN; +PHENYLEPHRINE\\TROPICAMIDE\\TETRACAINE OPHTHALMIC DILATING SOLN RIGHTEYE PRN; +Povidone-Iodine 450 DROP/30 ML Solution ONE; +Povidone-Iodine 450 DROP/30 ML Solution RIGHTEYE SCH; -TOCILIZUMAB IV SCH; +Tetracaine HCl/Pf 0.5% Opth Soln 4 ml ONE
[2025-04-11] MEDS ORDERED: Bisoprolol Fumar5 MG PO (12:25)
--- NOTE | 2025-04-11 12:43 | NUR ---
04/11/25 1243 Estefania Garcia PT STATES HER ANXIETY IS A 01/09. VALIUM 10MG GIVEN AT 1222. PULSE OXIMETRY IN PLACE SHOWING SPO2 AT 98% ON RA. TETRACAINE IN AT 1217 PLEDGET IN AT 1218 PT TOLERATED WELL BED RAILS UP, CALL LIGHT IN PLACE, DAUGHTER AT BEDSIDE
--- NOTE | 2025-04-11 12:56 | NUR ---
04/11/25 1256 EVELYN BENTON PT VSS T/O PROCEDURE 150/87 HR 70 O2 98% ON BLOWBY
--- NOTE | 2025-04-11 14:20 | NUR ---
04/11/25 1420 Jaskaran Sepulveda PT INSTRUCTED TO MONITOR B/P AT HOME, AND FOLLOW UP WITH PCP IF NEEDED.
[2025-04-11 14:24] VITALS: BP 138/73
== END 2025-04-11 13:25 | disposition home or self-care (01) ==
LOC: ORSCSDS 11:42
PROVIDERS: Student in an Organized Health Care Education/Training Program
PROC: 08RJ3JZ Replacement of Right Lens with Synthetic Substitute, Percutaneous Approach (ICD-10-PCS; principal; 2025-04-11 13:30)
DX: H25.813 Combined forms of age-related cataract, bilateral (principal); I10 Essential (primary) hypertension; E78.5 Hyperlipidemia, unspecified; M79.7 Fibromyalgia; I25.10 Atherosclerotic heart disease of native coronary artery without angina pectoris; Z79.82 Long term (current) use of aspirin; Z79.899 Other long term (current) drug therapy; F17.210 Nicotine dependence, cigarettes, uncomplicated
CPT/HCPCS: A9270; V2632

== ENCOUNTER 2025-04-17 10:14 | Day surgery (SDC) | payer MEDICARE, OTHER ==
[~2025-04-17] VITALS: Ht 152.4 cm; Wt 42.9 kg
[~2025-04-17 10:14] MED LIST changes: +Moxifloxacin HCL 0.5 MG/0.1 ML 0.4MLSYR LEFTEYE SCH; -Moxifloxacin HCL 0.5 MG/0.1 ML 0.4MLSYR RIGHTEYE SCH; +PHENYLEPHRINE\\TROPICAMIDE\\TETRACAINE OPHTHALMIC DILATING SOLN LEFTEYE PRN; -PHENYLEPHRINE\\TROPICAMIDE\\TETRACAINE OPHTHALMIC DILATING SOLN RIGHTEYE PRN; +Povidone-Iodine 450 DROP/30 ML Solution LEFTEYE SCH; -Povidone-Iodine 450 DROP/30 ML Solution RIGHTEYE SCH
--- NOTE | 2025-04-17 11:02 | NUR ---
04/17/25 1102 Rose Love PT STATES ANXIETY LEVEL IS 0/10 IN PREOP PT HAS CALL LIGHT IN HAND PT HAS CONTINUOUS PULSE OX ON
--- NOTE | 2025-04-17 11:44 | NUR ---
04/17/25 1144 Jodie Nevarez BP 151/88, HR 70, O2 SAT 100% WITH O2 AT 8L BLOWBY.
[2025-04-17 12:07] VITALS: BP 155/81
== END 2025-04-17 12:05 | disposition home or self-care (01) ==
LOC: ORSCSDS 10:14
PROVIDERS: Student in an Organized Health Care Education/Training Program
PROC: 08RK3JZ Replacement of Left Lens with Synthetic Substitute, Percutaneous Approach (ICD-10-PCS; principal; 2025-04-17 12:30)
DX: H25.812 Combined forms of age-related cataract, left eye (principal); Z96.1 Presence of intraocular lens; I10 Essential (primary) hypertension; I25.10 Atherosclerotic heart disease of native coronary artery without angina pectoris; E78.5 Hyperlipidemia, unspecified; M79.7 Fibromyalgia; Z79.82 Long term (current) use of aspirin; Z79.899 Other long term (current) drug therapy; F17.210 Nicotine dependence, cigarettes, uncomplicated
CPT/HCPCS: A9270; V2632

== ENCOUNTER 2025-04-27 00:13 | Day surgery (SDC) | payer MEDICARE, OTHER ==
[~2025-04-27 00:13] MED LIST changes: -Balanced Salt Epinephrine Irrigation Solution 500 mL IR SCH; -Moxifloxacin HCL 0.5 MG/0.1 ML 0.4MLSYR LEFTEYE SCH; -Ondansetron 4 MG SoluTab MM PRN; -PHENYLEPHRINE\\TROPICAMIDE\\TETRACAINE OPHTHALMIC DILATING SOLN LEFTEYE PRN; -Povidone-Iodine 450 DROP/30 ML Solution LEFTEYE SCH; -Povidone-Iodine 450 DROP/30 ML Solution ONE; -Tetracaine HCl/Pf 0.5% Opth Soln 4 ml ONE
[2025-04-27] MEDS ORDERED: NS IV SCH (06:00)
[2025-04-27] MEDS ORDERED: TOCILIZUMAB IV SCH (06:00)
[2025-04-27 13:55] VITALS: BP 146/86
== END 2025-04-27 15:17 | disposition home or self-care (01) ==
LOC: ATC 00:13
DX: M05.79 Rheumatoid arthritis with rheumatoid factor of multiple sites without organ or systems involvement (principal); I25.10 Atherosclerotic heart disease of native coronary artery without angina pectoris; J44.9 Chronic obstructive pulmonary disease, unspecified; Z79.899 Other long term (current) drug therapy; Z91.018 Allergy to other foods
CPT/HCPCS: 96365; J3262

== ENCOUNTER 2025-05-22 08:26 | Emergency (ER) | payer MEDICARE, OTHER ==
[~2025-05-22] VITALS: Ht 160 cm; Wt 52.2 kg
[2025-05-22 09:28] VITALS: BP 134/99
[2025-05-22] MEDS ORDERED: Lidocaine 4% 1 Patch TOP ONE (09:35)
[2025-05-22] MEDS ORDERED: Ketorolac Tromethamine 15mg Vial IM ONE ×2 (09:35→11:55)
[2025-05-22] MEDS ORDERED: LIDOCAN III1 EACH TOP (12:21)
[2025-05-22] MEDS ORDERED: CYCL10 PO (12:21)
[2025-05-23] MEDS ORDERED: Lidocaine 4% 1 Patch TOP SCH (09:00)
== END 2025-05-22 12:40 | disposition home or self-care (01) ==
LOC: ER 08:26
DX: M54.2 Cervicalgia (principal); I10 Essential (primary) hypertension; I25.10 Atherosclerotic heart disease of native coronary artery without angina pectoris; J44.9 Chronic obstructive pulmonary disease, unspecified; E78.5 Hyperlipidemia, unspecified; F17.210 Nicotine dependence, cigarettes, uncomplicated; Z88.2 Allergy status to sulfonamides; Z88.5 Allergy status to narcotic agent; Z88.8 Allergy status to other drugs, medicaments and biological substances; Z79.899 Other long term (current) drug therapy; Z79.82 Long term (current) use of aspirin
CPT/HCPCS: 96372; 99282-25; A9270; J1885

== ENCOUNTER 2025-05-25 01:04 | Day surgery (SDC) | payer MEDICARE, OTHER ==
[~2025-05-25 01:04] MED LIST changes: +CYCL10 PO; +LIDOCAN III1 EACH TOP
[2025-05-25] MEDS ORDERED: TOCILIZUMAB IV SCH (06:00)
[2025-05-25] MEDS ORDERED: NS IV SCH (06:00)
[2025-05-25 13:40] VITALS: BP 143/64
== END 2025-05-25 15:16 | disposition home or self-care (01) ==
LOC: ATC 01:04
DX: M05.79 Rheumatoid arthritis with rheumatoid factor of multiple sites without organ or systems involvement (principal); I25.10 Atherosclerotic heart disease of native coronary artery without angina pectoris; J44.9 Chronic obstructive pulmonary disease, unspecified; Z95.5 Presence of coronary angioplasty implant and graft; Z95.1 Presence of aortocoronary bypass graft; Z79.899 Other long term (current) drug therapy; Z91.018 Allergy to other foods
CPT/HCPCS: 96365; J3262

== ENCOUNTER → 2025-05-30 | Outpatient (CLI) | payer MEDICARE, OTHER | LOC: LAB SHORT 18:28 → LAB 18:28 | DX: B37.2 Candidiasis of skin and nail (principal) | CPT/HCPCS: 87205 ==

== ENCOUNTER 2025-06-22 01:30 | Day surgery (SDC) | payer MEDICARE, OTHER ==
[2025-06-22] MEDS ORDERED: NS IV SCH (06:00)
[2025-06-22] MEDS ORDERED: TOCILIZUMAB IV SCH (06:00)
[2025-06-22 14:34] VITALS: BP 161/99
== END 2025-06-22 16:09 | disposition home or self-care (01) ==
LOC: ATC 01:30
DX: M05.79 Rheumatoid arthritis with rheumatoid factor of multiple sites without organ or systems involvement (principal); I25.10 Atherosclerotic heart disease of native coronary artery without angina pectoris; J44.9 Chronic obstructive pulmonary disease, unspecified; F17.210 Nicotine dependence, cigarettes, uncomplicated; Z88.8 Allergy status to other drugs, medicaments and biological substances
CPT/HCPCS: 96365; J3262